=== PATIENT | male | born 1985 | race Caucasian/White ===

== ENCOUNTER 2017-03-27 01:53 | Inpatient (IN) | payer MEDICAID, OTHER ==
[~2017-03-27] VITALS: Ht 167.6 cm; Wt 72.2 kg
[2017-03-27 01:53] VITALS: BP 162/93; PULSE 108; RESP 13; RESP 18; TEMP 98.4; O2SAT 98
[2017-03-27] MEDS ORDERED: IOHEXOL 350 MG/ML 10 ML VIAL (for RAD DIAG) IV ONE ×2 (02:13→18:27)
[2017-03-27] MEDS ORDERED: ACETAMINOPHEN 325 MG TAB PO ONE (02:15)
[2017-03-27 02:30] LABS: AUTOMATED NEUTROPHIL # 11.7 TH/MM3 (1.8-7.7); BASOPHIL # 0.1 TH/MM3 (0-0.2); BASOPHIL % 0.4 % (0.0-2.0); EOSINOPHIL # 0.2 TH/MM3 (0-0.4); EOSINOPHIL % 1.3 % (0.0-4.0); HEMATOCRIT 43.7 % (39.0-51.0); HEMO FLAGS DIFF FINAL; LYMPH % 13.9 % (9.0-44.0); LYMPHOCYTE # 2.2 TH/MM3 (1.0-4.8); MEAN CELL VOLUME 86.5 FL (80.0-100.0); MEAN CORPUSCULAR HEMOGLOBIN 28.2 PG (27.0-34.0); MEAN CORPUSCULAR HGB CONC 32.6 % (32.0-36.0); MONO % 8.8 % (0.0-8.0); NEUT % 75.6 % (16.0-70.0); PLATELET COUNT 191 TH/MM3 (150-450); RED BLOOD COUNT 5.05 MIL/MM3 (4.50-5.90); WHITE BLOOD COUNT 15.5 TH/MM3 (4.0-11.0)
--- NOTE | 2017-03-27 02:38 | RADRPT ---
EXAM DATE/TIME: 03/27/2017 02:23 [facility] COMPARISON: No previous studies available for comparison. INDICATIONS : Fever. MEDICAL HISTORY : None. SURGICAL HISTORY : None. ENCOUNTER: Initial ACUITY: 1 day PAIN SCORE: 0/10 LOCATION: Bilateral chest FINDINGS: A single view of the chest demonstrates the lungs to be symmetrically aerated without evidence of mas s, infiltrate or effusion. The cardiomediastinal contours are unremarkable. Osseous structures are intact. CONCLUSION: Normal examination. Dedrick Harley Jr., MD on March 27, 2017 at 2:36 Board Certified Radiologist. This report was verified electronically.
[2017-03-27 02:49] LABS: BACTERIA, URINE RARE /hpf; BLOOD, URINE NEG (NEG); COMMENT (UR) CATH-CULTURE IND; CULTURE IF INDICATED CATH CULTURE IND; GLUCOSE,URINE NEG (NEG); HYALINE CAST, URINE 1 /lpf (RARE); KETONE, URINE 10 mg/dL (NEG); MUCUS URINE MOD /lpf (OCC); NITRITE,URINE NEG (NEG); SQUAMOUS EPITHELIAL CELL URINE <1 /hpf (0-5); URINE COLOR YELLOW (YELLW/STRAW)
[2017-03-27 03:06] LABS: ALT (GPT) 14 U/L (12-78); ANION GAP 6 MEQ/L (5-15); AST (GOT) 8 U/L (15-37); BICARBONATE 25.9 MEQ/L (21.0-32.0); BLOOD UREA NITROGEN 17 MG/DL (7-18); CHLORIDE 110 MEQ/L (98-107); GLOMERULAR FILTRATION RATE 69 ML/MIN (>89); POTASSIUM 3.7 MEQ/L (3.5-5.1); SODIUM (NA) 142 MEQ/L (136-145)
--- NOTE | 2017-03-27 03:08 | RADRPT ---
EXAM DATE/TIME: 03/27/2017 02:47 [facility] COMPARISON: No previous studies available for comparison. INDICATIONS : Syncopal episode, hit forehead. RADIATION DOSE: 41.51 CTDIvol (mGy) MEDICAL HISTORY : None SURGICAL HISTORY : None. ENCOUNTER: Initial ACUITY: 1 day PAIN SCALE: 0/10 LOCATION: cranial TECHNIQUE: Multiple contiguous axial images were obtained of the head. Using automated exposure control and adj ustment of the mA and/or kV according to patient size, radiation dose was kept as low as reasonably a chievable to obtain optimal diagnostic quality images. FINDINGS: CEREBRUM: The ventricles are normal for age. No evidence of midline shift, mass lesion, hemorrhage or acute in farction. No extra-axial fluid collections are seen. POSTERIOR FOSSA: The cerebellum and brainstem are intact. The 4th ventricle is midline. The cerebellopontine angle i s unremarkable. EXTRACRANIAL: The visualized portion of the orbits is intact. SKULL: The calvaria is intact. No evidence of skull fracture. CONCLUSION: Normal examination. Dedrick Harley Jr., MD on March 27, 2017 at 3:06 Board Certified Radiologist. This report was verified electronically.
--- NOTE | 2017-03-27 03:09 | PD ---
HPI Chief Complaint: Syncope/Near-Syncope Time Seen by Provider: 02:05 Travel History International Travel<30 days: No Contact w/Intl Traveler<30days: No Traveled to known affect area: No History of Present Illness HPI 32-year-old man who presents emergency department complaining of fever, swollen lymph nodes, neck pain, and possible seizure versus syncopal episode. He has no significant past medical history. He states the morning, 2 days ago, started having trouble swelling in the glands in the right side of his neck. This worsening straightening swelling of glands on both sides of his neck. He became more tender. He was seen in urgent care where he had lab work sent off. No therapeutic measures were taken at that point. He was feeling worse and was really in bed all day today. He's had chills. He had fever. States he got and began to feel faint. He said some of the table. He felt hot and flushed. His head on the table. Then woke up on the ground. He hasn't abrasion to his forehead, and was incontinent of urine. No witnessed seizure activity or convulsions. Denies pain in his neck, some stiffness but the pain is mostly in the front where he has marked adenopathy. He has sore throat and pain with swallowing. He thinks she's been eating and drinking okay. No sick contacts. No other complaints. History Past Medical History Medical History: Denies Significant Hx Tetanus Vaccination: Unknown Influenza Vaccination: No Social History Alcohol Use: Yes (OCCASIONALLY) Tobacco Use: No Allergies-Medications (Allergen,Severity, Reaction): Coded Allergies: No Known Allergies (Unverified , 03/27/17) Reported Meds & Prescriptions Reported Meds & Active Scripts Active No Active Prescriptions or Reported Medications Review of Systems Except as stated in HPI: all other systems reviewed are Neg Physical Exam Narrative GENERAL: Well-appearing 32-year-old man, no acute distress. SKIN: Focused skin assessment warm/dry. HEAD: Atraumatic. Normocephalic. EYES: Pupils equal and round. No scleral icterus. No injection or drainage. ENT: No nasal bleeding or discharge. Mucous membranes pink and moist. Tonsils are difficult to visualize but don't see any obvious tonsillar swelling, or pharyngeal exudates. NECK: Trachea midline. Large bilateral anterior cervical adenopathy, worse on the right. Some neck stiffness. CARDIOVASCULAR: Regular rate and rhythm. No murmur appreciated. RESPIRATORY: No accessory muscle use. Clear to auscultation. Breath sounds equal bilaterally. GASTROINTESTINAL: Abdomen soft, non-tender, nondistended. Hepatic and splenic margins not palpable. MUSCULOSKELETAL: No obvious deformities. No edema. NEUROLOGICAL: Awake and alert. No obvious cranial nerve deficits. Motor grossly within normal limits. Normal speech. PSYCHIATRIC: Appropriate mood and affect; insight and judgment normal. Data Data Last Documented VS Vital Signs Date Time Temp Pulse Resp B/P Pulse Ox O2 Delivery O2 Flow Rate FiO2 03/27/17 01:53 98 2 03/27/17 01:53 98.4 108 13 162/93 03/27/17 01:53 Room Air Orders Complete Blood Count With Diff (03/27/17 02:05) Comprehensive Metabolic Panel (03/27/17 02:05) Lactic Acid Sepsis Protocol (03/27/17 02:05) Magnesium (Mg) (03/27/17 02:05) Lipase (03/27/17 02:05) Troponin I (03/27/17 02:05) Urinalysis - C+S If Indicated (03/27/17 02:05) Bacterial Antigen Csf (03/27/17 02:05) Csf Cell Count + Differential (03/27/17 02:05) Glucose, Csf (03/27/17 02:05) Total Protein, Csf (03/27/17 02:05) Csf Culture And Gram Stain (03/27/17 02:05) Influenzae A/B Antigen (03/27/17 02:05) Blood Culture (03/27/17 02:05) Chest, Single Ap (03/27/17 02:05) Blood Glucose (03/27/17 02:05) Ecg Monitoring (03/27/17 02:05) Iv Access Insert/Monitor (03/27/17 02:05) Oximetry (03/27/17 02:05) Oxygen Administration (03/27/17 02:05) Acetaminophen (Tylenol) (03/27/17 02:15) Ct Brain W/O Iv Contrast(Rout) (03/27/17 ) Monoscreen (03/27/17 02:05) Group A Rapid Strep Screen (03/27/17 02:05) Iohexol 350 Inj (Omnipaque 350 Inj) (03/27/17 02:13) Strep Culture (Group A) (03/27/17 02:00) Urine Culture (03/27/17 02:35) Hsv Dna Pcr (03/27/17 04:50) Cat Scratch Fever Abs Igg,Igm (03/27/17 04:50) Vancomycin Inj (Vancomycin Inj) (03/27/17 05:00) Ceftriaxone Inj (Rocephin Inj) (03/27/17 05:00) Acyclovir Inj (Zovirax Inj) (03/27/17 05:00) Labs Laboratory Tests Test 03/27/17 03/27/17 03/27/17 02:15 02:35 03:45 White Blood Count 15.5 TH/MM3 Red Blood Count 5.05 MIL/MM3 Hemoglobin 14.2 GM/DL Hematocrit 43.7 % Mean Corpuscular Volume 86.5 FL Mean Corpuscular Hemoglobin 28.2 PG Mean Corpuscular Hemoglobin 32.6 % Concent Red Cell Distribution Width 14.0 % Platelet Count 191 TH/MM3 Mean Platelet Volume 8.8 FL Neutrophils (%) (Auto) 75.6 % Lymphocytes (%) (Auto) 13.9 % Monocytes (%) (Auto) 8.8 % Eosinophils (%) (Auto) 1.3 % Basophils (%) (Auto) 0.4 % Neutrophils # (Auto) 11.7 TH/MM3 Lymphocytes # (Auto) 2.2 TH/MM3 Monocytes # (Auto) 1.4 TH/MM3 Eosinophils # (Auto) 0.2 TH/MM3 Basophils # (Auto) 0.1 TH/MM3 CBC Comment DIFF FINAL Differential Comment Sodium Level 142 MEQ/L Potassium Level 3.7 MEQ/L Chloride Level 110 MEQ/L Carbon Dioxide Level 25.9 MEQ/L Anion Gap 6 MEQ/L Blood Urea Nitrogen 17 MG/DL Creatinine 1.22 MG/DL Estimat Glomerular Filtration 69 ML/MIN Rate Random Glucose 134 MG/DL Lactic Acid Level 1.1 mmol/L Calcium Level 8.3 MG/DL Magnesium Level 2.0 MG/DL Total Bilirubin 0.7 MG/DL Aspartate Amino Transf 8 U/L (AST/SGOT) Alanine Aminotransferase 14 U/L (ALT/SGPT) Alkaline Phosphatase 62 U/L Troponin I LESS THAN 0.02 NG/ML Total Protein 6.8 GM/DL Albumin 3.6 GM/DL Lipase 118 U/L Monoscreen NEG Urine Color YELLOW Urine Turbidity CLEAR Urine pH 6.0 Urine Specific [place] 1.019 Urine Protein NEG mg/dL Urine Glucose (UA) NEG mg/dL Urine Ketones 10 mg/dL Urine Occult Blood NEG Urine Nitrite NEG Urine Bilirubin NEG Urine Urobilinogen LESS THAN 2.0 MG/DL Urine Leukocyte Esterase NEG Urine RBC LESS THAN 1 /hpf Urine WBC 2 /hpf Urine Squamous Epithelial <1 /hpf Cells Urine Bacteria RARE /hpf Urine Hyaline Casts 1 /lpf Urine Mucus MOD /lpf Microscopic Urinalysis Comment CATH-CULTURE IND CSF Volume (Tube 1) 1.2 ML CSF Supernatant Color (tube 1) CLEAR CSF Gross Blood (Tube 1) 0 CSF Volume (Tube 2) 1.1 ML CSF Supernatant Color (tube 2) CLEAR CSF Gross Blood (Tube 2) 0 CSF Volume (Tube 3) 2.2 ML CSF Supernatant Color (tube 3) CLEAR CSF Gross Blood (Tube 3) 0 CSF Volume (Tube 4) 1.7 ML CSF Supernatant Color (tube 4) CLEAR CSF Gross Blood (Tube 4) 0 CSF WBC (Tube 4) 25 /MM3 CSF RBC (Tube 4) 0 /MM3 CSF Neutrophils 0 % CSF Lymphocytes 67 % CSF Monocytes 18 % CSF Histiocytes 15 % CSF Glucose 57 MG/DL CSF Total Protein 63.4 MG/DL [facility] Medical Decision Making Medical Screen Exam Complete: Yes Emergency Medical Condition: Yes Interpretation(s) LABS: CBC remarkable for mild leukocytosis. CMP is unremarkable. Troponins negative. Lipase is normal. Lactate is 1.1. UA is unremarkable. Monospot is negative Rapid strep is negative. Head CT: Negative. Chest x-ray: Negative. Differential Diagnosis Lymphadenitis, meningitis, strep, mono, acute retroviral syndrome, other Narrative Course Medical decision making 32-year-old man presents emergent department with concern for fever, anterior cervical lymphadenitis, syncope versus seizure, and feeling poorly. No clear URI symptoms. No HIV risk factors, no IVDU, sexually active one female partner only. Monospot is negative. Rapid strep is negative. He has a lot of neck pain but he has his bulky adenopathy. I think primarily accounts for it. However given the concern for seizure, fever, neck pain, we'll check lumbar puncture. Suspect it'll be normal and we'll treat him for lymphadenitis. FINAL: CSF results show pleocytosis. Etiology is not clear. May have disseminated Cat Scratch disease. He looks overall well. We will empirically cover him for meningoencephalitis. We will add acyclovir. We'll plan on admission for further evaluation. Procedures Procedure Narrative Lumbar puncture: Form consent was obtained. Patient was initially attempted in the seated position. There is prepped with Betadine. 20-gauge needle was attempted and the L4-L5 interspace. We're unsuccessful. Patient was then changed to his left lateral decubitus position. New kit was used. Second attempt was successful. Clear spinal fluid was obtained. Patient tolerated well. Diagnosis Primary Impression: Encephalitis Additional Impression: Cat-scratch disease Admitting Information Admitting Physician Requests: Admit Scripts No Active Prescriptions or Reported Meds Parmjit Colon MD March 27, 2017 03:09
[2017-03-27 03:21] LABS: ALKALINE PHOSPHATASE 62 U/L (45-117); TOTAL BILIRUBIN ADULT 0.7 MG/DL (0.2-1.0)
[2017-03-27 04:36] LABS: GROSS BLOOD TUBE #1 0 (0); GROSS BLOOD TUBE #2 0 (0); GROSS BLOOD TUBE #3 0 (0); GROSS BLOOD TUBE #4 0 (0); SUPERNATE COLOR TUBE #1 CLEAR (CLEAR); SUPERNATE COLOR TUBE #2 CLEAR (CLEAR); SUPERNATE COLOR TUBE #3 CLEAR (CLEAR); SUPERNATE COLOR TUBE #4 CLEAR (CLEAR); VOLUME TUBE # 1 1.2 ML; VOLUME TUBE # 2 1.1 ML; VOLUME TUBE # 3 2.2 ML; VOLUME TUBE # 4 1.7 ML; WBC TUBE #4 25 /MM3 (0-10)
[2017-03-27] MEDS ORDERED: cefTRIAXone INJ 2,000 MG in SODIUM CHLORIDE 0.9% INJ 100 ML IV ONE (05:00)
[2017-03-27] MEDS ORDERED: ACYCLOVIR IV ONE (05:00)
[2017-03-27] MEDS ORDERED: VANCOMYCIN INJ 1,000 MG in SODIUM CHLOR 0.9% 250 ML INJ 250 ML IV ONE (05:00)
[2017-03-27] MEDS ORDERED: SODIUM CHLORIDE 0.9% IV ONE (05:00)
[2017-03-27 05:03] LABS: CSF LYMPHOCYTES 67 %; CSF MONOCYTES 18 %; CSF NEUTROPHILS 0 %
[2017-03-27] MEDS ORDERED: NALOXONE HCL 0.4 MG/ML AMP IV PRN (05:30)
[2017-03-27] MEDS ORDERED: ACETAMINOPHEN 325 MG TAB PO PRN (05:30)
[2017-03-27] MEDS ORDERED: ONDANSETRON HCL 4 MG/2 ML VIAL IVP PRN (05:30)
[2017-03-27] MEDS ORDERED: SODIUM CHLORIDE 0.9% FLUSH 10 ML FLUSH IV FLUSH PRN (05:30)
[2017-03-27] MEDS ORDERED: Vancomycin Consult Pharmacy 1 EA OTHER SCH (05:45)
[2017-03-27 07:24] VITALS: BP 132/75; PULSE 83; RESP 18; O2SAT 99
[2017-03-27] MEDS: SODIUM CHLORIDE 0.9% FLUSH 10 ML FLUSH IV FLUSH SCH ×2 (09:15→20:55)
[2017-03-27 09:20] VITALS: BP 143/84; PULSE 99; RESP 20; TEMP 97.7; O2SAT 99
--- NOTE | 2017-03-27 10:17 | HHI.HP ---
[facility] Service [place] [facility] Primary Care Physician No Primary Care Physician Admission Diagnosis encephalitis, cat scratch disease Diagnoses: (1) Encephalitis Diagnosis: Principal Chief Complaint: ' I wasn't feeling well'. Travel History International Travel<30 Days: No Contact w/Intl Traveler <30 Da: No Traveled to Known Affected Are: No History of Present Illness patient is a 32 y/o male with no significant past medical history who presented to ER after he passed out last night. he says that he had a painful enlarged cervical lymph node two days ago. this started to get worse. he denies any fever at the time although had some chills. he says that last night when he went to take some motrin he felt diaphoretic and then passed out. he denies any chest pain or so prior to the incident. there's no report of any seizures. he denies any sick contact or recent trips.he denies any headache although he says that he had some pain on moving his neck last night. Review of Systems Constitutional: COMPLAINS OF: Diaphoretic episodes, Chills, DENIES: Fever, Weight loss, Night Sweats Eyes: DENIES: Blurred vision, Diplopia, Vision loss, Double Vision Ears, nose, mouth, throat: DENIES: Tinnitus, Vertigo, Throat pain, Epistaxis Respiratory: DENIES: Apneas, Cough, Snoring, Wheezing, Hemoptysis, Sputum production, Shortness of breath Cardiovascular: DENIES: Chest pain, Palpitations, Syncope, Dyspnea on Exertion , PND, Lower Extremity Edema, Orthopnea, Claudication Gastrointestinal: DENIES: Abdominal pain, Black stools, Bloody stools, Constipation, Diarrhea, Nausea, Vomiting, Difficulty Swallowing, Anorexia Genitourinary: DENIES: Urinary frequency, Urgency, Hematuria, Dysuria Musculoskeletal: COMPLAINS OF: Neck pain, DENIES: Joint pain, Muscle aches, Stiffness, Joint Swelling Integumentary: DENIES: Rash Neurologic: DENIES: Abnormal gait, Headache, Localized weakness, Paresthesias, Seizures, Speech Problems, Tremor, Poor Balance Psychiatric: DENIES: Anxiety, Confusion, Mood changes, Depression, Hallucinations, Agitation, Suicidal Ideation, Homicidal Ideation, Delusions Past Family Social History Past Medical History not significant. Past Surgical History era surgery at childhood. Reported Medications none Allergies: Coded Allergies: No Known Allergies (Unverified , 03/27/17) Active Ordered Medications Current Medications Acetaminophen (Tylenol) 650 mg ONCE ONCE PO Last administered on 03/27/17 02: 40; Start 03/27/17 at 02:15; Stop 03/27/17 at 02:16; Status DC Iohexol 80 ml 80 ml STK-MED ONCE IV Last administered on 03/27/17 02:13; Start 03/27/17 at 02:13; Stop 03/27/17 at 02:18; Status DC Vancomycin HCl 1000 mg/Sodium Chloride 250 ml @ 250 mls/hr ONCE ONCE IV Last administered on 03/27/17 07:24; Start 03/27/17 at 05:00; Stop 03/27/17 at 05:59; Status DC Ceftriaxone Sodium 2000 mg/ Sodium Chloride 100 ml @ 200 mls/hr ONCE ONCE IV Last administered on 03/27/17 05:21; Start 03/27/17 at 05:00; Stop 03/27/17 at 05: 29; Status DC Acyclovir Sodium/ Sodium Chloride (Zovirax Inj/NS Inj) 150 ml @ 150 mls/hr ONCE ONCE IV Last administered on 03/27/17 09:15; Start 03/27/17 at 05:00; Stop 03/27/17 at 05:59; Status DC Sodium Chloride (NS Flush) 2 ml UNSCH PRN IV FLUSH FLUSH AFTER USING IV ACCESS ; Start 03/27/17 at 05:30 Sodium Chloride (NS Flush) 2 ml BID IV FLUSH Last administered on 03/27/17 09: 15; Start 03/27/17 at 09:00 Acetaminophen (Tylenol) 650 mg Q4H PRN PO TEMP > 100.4; Start 03/27/17 at 05:30 Ondansetron HCl (Zofran Inj) 4 mg Q6H PRN IVP NAUSEA OR VOMITING; Start at 05:30 Naloxone HCl 0.4 mg 0.4 mg UNSCH PRN IV SEE LABEL COMMENTS; Start 03/27/17 at 05 :30 Acyclovir Sodium 780 mg/Sodium Chloride 150 ml @ 150 mls/hr Q8H IV ; Start 03/27 at 14:00 Ceftriaxone Sodium 2000 mg/ Sodium Chloride 100 ml @ 200 mls/hr Q12H IV ; Start 03/27/17 at 17:00 Vancomycin HCl 1250 mg/Sodium Chloride 262.5 ml @ 262.5 mls/ hr Q12H IV ; Start 03/27/17 at 15:00 Pharmacy Profile Note (Vancomycin Consult Pharmacy) 0 ml @ 0 mls/hr UNSCH OTHER ; Start 03/27/17 at 05:45 Miscellaneous Information SPECIFIC LAB TO BE [facility]... ONCE ONCE .XX ; Start 03/28 at 14:45; Stop 03/28/17 at 14:46 Family History not relevant to this admission. Social History doesn't smoke.drinks occasionally. Physical Exam Vital Signs Vital Signs Date Time Temp Pulse Resp B/P Pulse Ox O2 Delivery O2 Flow Rate FiO2 03/27/17 09:20 97.7 99 20 143/84 99 03/27/17 07:24 83 18 132/75 99 03/27/17 01:53 98 2 03/27/17 01:53 98.4 108 13 162/93 98 03/27/17 01:53 108 13 98 Room Air 03/27/17 01:53 18 98 Nasal Cannula Physical Exam GENERAL: This is a well-nourished, well-developed patient, in no apparent distress. SKIN: No rashes, ecchymoses or lesions. Cool and dry. HEAD: Atraumatic. Normocephalic. No temporal or scalp tenderness. EYES: Pupils equal round and reactive. Extraocular motions intact. No scleral icterus. No injection or drainage. ENT: Nose without bleeding, purulent drainage or septal hematoma. Throat without erythema, tonsillar hypertrophy or exudate. Uvula midline. Airway patent. NECK: Trachea midline. No JVD or lymphadenopathy. Supple, nontender, no meningeal signs. CARDIOVASCULAR: Regular rate and rhythm without murmurs, gallops, or rubs. RESPIRATORY: Clear to auscultation. Breath sounds equal bilaterally. No wheezes , rales, or rhonchi. GASTROINTESTINAL: Abdomen soft, non-tender, nondistended. No hepato-splenomegaly , or palpable masses. No guarding. MUSCULOSKELETAL: Extremities without clubbing, cyanosis, or edema. No joint tenderness, effusion, or edema noted. No calf tenderness. Negative Homans sign bilaterally. NEUROLOGICAL: Awake and alert. Cranial nerves II through XII intact. Motor and sensory grossly within normal limits. Five out of 5 muscle strength in all muscle groups. Normal speech. Laboratory Laboratory Tests Test 03/27/17 03/27/17 03/27/17 02:15 02:35 03:45 White Blood Count 15.5 Red Blood Count 5.05 Hemoglobin 14.2 Hematocrit 43.7 Mean Corpuscular Volume 86.5 Mean Corpuscular Hemoglobin 28.2 Mean Corpuscular Hemoglobin 32.6 Concent Red Cell Distribution Width 14.0 Platelet Count 191 Mean Platelet Volume 8.8 Neutrophils (%) (Auto) 75.6 Lymphocytes (%) (Auto) 13.9 Monocytes (%) (Auto) 8.8 Eosinophils (%) (Auto) 1.3 Basophils (%) (Auto) 0.4 Neutrophils # (Auto) 11.7 Lymphocytes # (Auto) 2.2 Monocytes # (Auto) 1.4 Eosinophils # (Auto) 0.2 Basophils # (Auto) 0.1 CBC Comment DIFF FINAL Differential Comment Sodium Level 142 Potassium Level 3.7 Chloride Level 110 Carbon Dioxide Level 25.9 Anion Gap 6 Blood Urea Nitrogen 17 Creatinine 1.22 Estimat Glomerular Filtration 69 Rate Random Glucose 134 Lactic Acid Level 1.1 Calcium Level 8.3 Magnesium Level 2.0 Total Bilirubin 0.7 Aspartate Amino Transf 8 (AST/SGOT) Alanine Aminotransferase 14 (ALT/SGPT) Alkaline Phosphatase 62 Troponin I LESS THAN 0.02 Total Protein 6.8 Albumin 3.6 Lipase 118 Monoscreen NEG Urine Color YELLOW Urine Turbidity CLEAR Urine pH 6.0 Urine Specific [place] 1.019 Urine Protein NEG Urine Glucose (UA) NEG Urine Ketones 10 Urine Occult Blood NEG Urine Nitrite NEG Urine Bilirubin NEG Urine Urobilinogen LESS THAN 2.0 Urine Leukocyte Esterase NEG Urine RBC LESS THAN 1 Urine WBC 2 Urine Squamous Epithelial <1 Cells Urine Bacteria RARE Urine Hyaline Casts 1 Urine Mucus MOD Microscopic Urinalysis Comment CATH-CULTURE IND CSF Volume (Tube 1) 1.2 CSF Supernatant Color (tube 1) CLEAR CSF Gross Blood (Tube 1) 0 CSF Volume (Tube 2) 1.1 CSF Supernatant Color (tube 2) CLEAR CSF Gross Blood (Tube 2) 0 CSF Volume (Tube 3) 2.2 CSF Supernatant Color (tube 3) CLEAR CSF Gross Blood (Tube 3) 0 CSF Volume (Tube 4) 1.7 CSF Supernatant Color (tube 4) CLEAR CSF Gross Blood (Tube 4) 0 CSF WBC (Tube 4) 25 CSF RBC (Tube 4) 0 CSF Neutrophils 0 CSF Lymphocytes 67 CSF Monocytes 18 CSF Histiocytes 15 CSF Glucose 57 CSF Total Protein 63.4 Date/Time Procedure Status Source Growth 03/27/17 03:45 Gram Stain - Final Resulted Cerebral Spinal Fluid Lumbar Puncture 03/27/17 03:45 CSF Culture Resulted Cerebral Spinal Fluid Lumbar Puncture Pending 03/27/17 02:35 Urine Culture Received Urine Catheterized Urine Pending 03/27/17 02:35 Influenza Types A,B Antigen (YENI) - Final Complete Nasal Washing NEGATIVE FOR FLU A AND B ANTIGEN.... 03/27/17 02:05 Aerobic Blood Culture Received Blood Peripheral Pending 03/27/17 02:05 Anaerobic Blood Culture Received Blood Peripheral Pending 03/27/17 02:00 Group A Streptococcus Screen (YENI) - Final Complete Throat 03/27/17 02:00 Group A Streptococcus Screen Received Throat Pending Result Diagram: 03/27/17 0215 03/27/17 0215 Imaging Last Impressions Chest X-Ray 03/27/17 0205 Signed Impressions: Service Date/Time: Monday, March 27, 2017 02:23 - CONCLUSION: Normal examination. Dedrick Harley Jr., MD Head CT 03/27/17 0000 Signed Impressions: Service Date/Time: Monday, March 27, 2017 02:47 - CONCLUSION: Normal examination. Dedrick Harley Jr., MD EKG; sinus tachycardia Assessment and Plan Assessment and Plan A/P - syncope with abnormal CSF pleocytosis started on broad spectrum IV antibiotics- ID consulted- will consult neurology. will follow the cultures. Discussed Condition With the patient. Physician Certification 2 Midnight Certification Type: Admission for Inpatient Services Order for Inpatient Services The services are ordered in accordance with Medicare regulations or non- Medicare payer requirements, as applicable. In the case of services not specified as inpatient-only, they are appropriately provided as inpatient services in accordance with the 2-midnight benchmark. Estimated LOS (days): 2 days is the estimated time the patient will need to remain in the hospital, assuming treatment plan goals are met and no additional complications. Post-Hospital Plan: Home Godfrey Mccarty MD March 27, 2017 10:16
[2017-03-27 12:00] VITALS: BP 128/79; PULSE 78; RESP 20; TEMP 97.9; O2SAT 98
[2017-03-27] MEDS: SODIUM CHLORIDE 0.9% IV SCH ×2 (12:34→21:00)
[2017-03-27] MEDS: ACYCLOVIR IV SCH ×2 (12:34→21:00)
[2017-03-27] MEDS: VANCOMYCIN INJ 1,250 MG in SODIUM CHLOR 0.9% 250 ML INJ 250 ML IV SCH (14:07)
--- NOTE | 2017-03-27 15:27 | EKG ---
Date Performed: 03/27/2017 Time Performed: 01:58:30 PTAGE: 32 years EKG: SINUS TACHYCARDIA POSSIBLE LEFT ATRIAL ENLARGEMENT INCOMPLETE RIGHT BUNDLE BRANCH BLOCK NON SPECIFIC T-WAVE ABNORMALITY ABNORMAL RHYTHM ECG NO PREVIOUS TRACING DOCTOR: [place] Roman Interpretating Date/Time 03/27/2017 15:24:06
[2017-03-27 16:00] VITALS: BP 132/77; PULSE 90; RESP 20; TEMP 100; O2SAT 99
--- NOTE | 2017-03-27 17:04 | PD.ID.CON ---
History of Present Illness Service ID Consult Requested By . Reason for Consult Evaluation and Mment of possible meningitis, cat scratch disease Primary Care Physician No Primary Care Physician Diagnoses: History of Present Illness is a 32 y/o CM with no significant past medical history who presented to ER after he passed out last night. He says that he had a painful enlarged cervical lymph node two days ago and this started to get worse. He denies any fever at the time although had some chills. he says that last night when he went to take some motrin he felt diaphoretic and then passed out. he denies any chest pain or so prior to the incident. there's no report of any seizures. he denies any sick contact or recent trips.he denies any headache although he says that he had some pain on moving his neck last night. No fever, chills, night sweats. No rash No diarrhea No joint pains or rheum like symptoms prior to admission. ID consulted for evaluation and Mment of possible meningitis. Review of Systems Constitutional: DENIES: Diaphoretic episodes, Fatigue, Fever, Weight gain, Weight loss, Chills, Dizziness, Change in appetite, Night Sweats Endocrine: DENIES: Heat/cold intolerance, Polydipsia, Polyuria, Polyphagia Eyes: DENIES: Blurred vision, Diplopia, Eye inflammation, Eye pain, Vision loss , Photosensitivity, Double Vision Ears, nose, mouth, throat: DENIES: Tinnitus, Hearing loss, Vertigo, Nasal discharge, Oral lesions, Throat pain, Hoarseness, Ear Pain, Running Nose, Epistaxis, Sinus Pain, Toothache, Odynophagia Respiratory: DENIES: Apneas, Cough, Snoring, Wheezing, Hemoptysis, Sputum production, Shortness of breath Cardiovascular: DENIES: Chest pain, Palpitations, Syncope, Dyspnea on Exertion , PND, Lower Extremity Edema, Orthopnea, Claudication Gastrointestinal: DENIES: Abdominal pain, Black stools, Bloody stools, Constipation, Diarrhea, Nausea, Vomiting, Difficulty Swallowing, Anorexia Genitourinary: DENIES: Sexual dysfunction, Urinary frequency, Urinary incontinence, Urgency, Hematuria, Dysuria, Nocturia, Penile Discharge, Testicular Pain, Testicular Swelling Musculoskeletal: COMPLAINS OF: Neck pain Integumentary: COMPLAINS OF: Abnormal pigmentation, DENIES: Nail changes, Pruritus, Rash Hematologic/lymphatic: DENIES: Bruising, Lymphadenopathy Immunologic/allergic: DENIES: Eczema, Urticaria Neurologic: DENIES: Abnormal gait, Headache, Localized weakness, Paresthesias, Seizures, Speech Problems, Tremor, Poor Balance Psychiatric: DENIES: Anxiety, Confusion, Mood changes, Depression, Hallucinations, Agitation, Suicidal Ideation, Homicidal Ideation, Delusions Except as stated in HPI: all other systems reviewed are Neg Past Family Social History Allergies: Coded Allergies: No Known Allergies (Unverified , 03/27/17) Past Medical History Ear surgery as child. Past Surgical History None Reported Medications Reported Meds & Active Scripts Active No Active Prescriptions or Reported Medications Active Ordered Medications Current Medications Medications (Trade) Dose Ordered Sig/Emi Route Start Time Stop Time Status Last Admin (NS Flush) 2 ml UNSCH PRN IV FLUSH 03/27/17 05:30 (NS Flush) 2 ml BID IV FLUSH 03/27/17 09:00 03/27/17 20:55 (Tylenol) 650 mg Q4H PRN PO 03/27/17 05:30 03/27/17 22:05 (Zofran Inj) 4 mg Q6H PRN IVP 03/27/17 05:30 Naloxone HCl 0.4 mg 0.4 mg UNSCH PRN IV 03/27/17 05:30 Acyclovir Sodium 780 mg/Sodium Chloride 150 ml @ 150 mls/hr Q8H IV 03/27/17 14:00 03/27/17 21:00 Ceftriaxone Sodium 2000 mg/ Sodium Chloride 100 ml @ 200 mls/hr Q12H IV 03/27/17 17:00 03/27/17 18:27 Vancomycin HCl 1250 mg/Sodium Chloride 262.5 ml @ 262.5 mls/ hr Q12H IV 03/27/17 15:00 03/27/17 14:07 (Vancomycin Consult Pharmacy) 0 ml @ 0 mls/hr UNSCH OTHER 03/27/17 05:45 Miscellaneous Information SPECIFIC LAB TO BE ... ONCE ONCE .XX 03/28/17 14:45 03/28/17 14:46 Family History reviewed and NC to current ID problem. Social History Denies alcohol, smoking or drugs. Not with girl friend any more. Last with her 1 week back. Employer: ? [employer] Physical Exam Vital Signs Vital Signs Date Time Temp Pulse Resp B/P Pulse Ox O2 Delivery O2 Flow Rate FiO2 03/27/17 12:00 97.9 78 20 128/79 98 03/27/17 09:20 97.7 99 20 143/84 99 03/27/17 07:24 83 18 132/75 99 03/27/17 01:53 98 2 03/27/17 01:53 98.4 108 13 162/93 98 03/27/17 01:53 108 13 98 Room Air 03/27/17 01:53 18 98 Nasal Cannula Physical Exam GENERAL: This is a well-nourished, well-developed patient, in no apparent distress. SKIN: No rashes, ecchymoses or lesions. Cool and dry. HEAD: Atraumatic. Normocephalic. No temporal or scalp tenderness. EYES: Pupils equal round and reactive. Extraocular motions intact. No scleral icterus. No injection or drainage. ENT: Nose without bleeding, purulent drainage or septal hematoma. Throat without erythema, tonsillar hypertrophy or exudate. Uvula midline. Airway patent. NECK: Trachea midline. Right neck with significant swelling, erythema, warmth, tenderness. Bimanual exam of oral cavity performed with no ballotment noted. Left submandibular tenderness and swelling noted. CARDIOVASCULAR: Regular rate and rhythm without murmurs, gallops, or rubs. RESPIRATORY: Clear to auscultation. Breath sounds equal bilaterally. No wheezes , rales, or rhonchi. GASTROINTESTINAL: Abdomen soft, non-tender, nondistended. MUSCULOSKELETAL: Extremities without clubbing, cyanosis, or edema. No joint tenderness, effusion, or edema noted. No calf tenderness. Negative Homans sign bilaterally. NEUROLOGICAL: Awake and alert. Grossly non focal Psych: cooperative IV line sites with no e/o infection Laboratory Laboratory Tests Test 03/27/17 03/27/17 03/27/17 02:15 02:35 03:45 White Blood Count 15.5 Red Blood Count 5.05 Hemoglobin 14.2 Hematocrit 43.7 Mean Corpuscular Volume 86.5 Mean Corpuscular Hemoglobin 28.2 Mean Corpuscular Hemoglobin 32.6 Concent Red Cell Distribution Width 14.0 Platelet Count 191 Mean Platelet Volume 8.8 Neutrophils (%) (Auto) 75.6 Lymphocytes (%) (Auto) 13.9 Monocytes (%) (Auto) 8.8 Eosinophils (%) (Auto) 1.3 Basophils (%) (Auto) 0.4 Neutrophils # (Auto) 11.7 Lymphocytes # (Auto) 2.2 Monocytes # (Auto) 1.4 Eosinophils # (Auto) 0.2 Basophils # (Auto) 0.1 CBC Comment DIFF FINAL Differential Comment Sodium Level 142 Potassium Level 3.7 Chloride Level 110 Carbon Dioxide Level 25.9 Anion Gap 6 Blood Urea Nitrogen 17 Creatinine 1.22 Estimat Glomerular Filtration 69 Rate Random Glucose 134 Lactic Acid Level 1.1 Calcium Level 8.3 Magnesium Level 2.0 Total Bilirubin 0.7 Aspartate Amino Transf 8 (AST/SGOT) Alanine Aminotransferase 14 (ALT/SGPT) Alkaline Phosphatase 62 Troponin I LESS THAN 0.02 Total Protein 6.8 Albumin 3.6 Lipase 118 Monoscreen NEG Urine Color YELLOW Urine Turbidity CLEAR Urine pH 6.0 Urine Specific Moore 1.019 Urine Protein NEG Urine Glucose (UA) NEG Urine Ketones 10 Urine Occult Blood NEG Urine Nitrite NEG Urine Bilirubin NEG Urine Urobilinogen LESS THAN 2.0 Urine Leukocyte Esterase NEG Urine RBC LESS THAN 1 Urine WBC 2 Urine Squamous Epithelial <1 Cells Urine Bacteria RARE Urine Hyaline Casts 1 Urine Mucus MOD Microscopic Urinalysis Comment CATH-CULTURE IND CSF Volume (Tube 1) 1.2 CSF Supernatant Color (tube 1) CLEAR CSF Gross Blood (Tube 1) 0 CSF Volume (Tube 2) 1.1 CSF Supernatant Color (tube 2) CLEAR CSF Gross Blood (Tube 2) 0 CSF Volume (Tube 3) 2.2 CSF Supernatant Color (tube 3) CLEAR CSF Gross Blood (Tube 3) 0 CSF Volume (Tube 4) 1.7 CSF Supernatant Color (tube 4) CLEAR CSF Gross Blood (Tube 4) 0 CSF WBC (Tube 4) 25 CSF RBC (Tube 4) 0 CSF Neutrophils 0 CSF Lymphocytes 67 CSF Monocytes 18 CSF Histiocytes 15 CSF Glucose 57 CSF Total Protein 63.4 Date/Time Procedure Status Source Growth 03/27/17 03:45 Gram Stain - Final Resulted Cerebral Spinal Fluid Lumbar Puncture 03/27/17 03:45 CSF Culture Resulted Cerebral Spinal Fluid Lumbar Puncture Pending 03/27/17 02:35 Urine Culture Received Urine Catheterized Urine Pending 03/27/17 02:35 Influenza Types A,B Antigen (YENI) - Final Complete Nasal Washing NEGATIVE FOR FLU A AND B ANTIGEN.... 03/27/17 02:05 Aerobic Blood Culture Received Blood Peripheral Pending 03/27/17 02:05 Anaerobic Blood Culture Received Blood Peripheral Pending 03/27/17 02:00 Group A Streptococcus Screen (YENI) - Final Complete Throat 03/27/17 02:00 Group A Streptococcus Screen Received Throat Pending Result Diagram: 03/27/17 02103/27/17 021 Imaging Last Impressions Chest X-Ray 03/27/17 0205 Signed Impressions: Service Date/Time: Monday, March 27, 2017 02:23 - CONCLUSION: Normal examination. Dedrick Harley Jr., MD Neck CT 03/27/17 0000 Signed Impressions: Service Date/Time: Monday, March 27, 2017 18:12 - CONCLUSION: No evidence of abscess Chuy Ruelas MD Maxillofacial CT 03/27/17 0000 Signed Impressions: Service Date/Time: Monday, March 27, 2017 18:03 - CONCLUSION: Normal examination. Chuy Ruelas MD Head CT 03/27/17 0000 Signed Impressions: Service Date/Time: Monday, March 27, 2017 02:47 - CONCLUSION: Normal examination. Dedrick Harley Jr., MD Assessment and Plan Assessment and Plan Possible meningoencephalitis vs parameningeal focus of infection related to neck swelling. Right side neck swelling ? origin submandibular gland vs LNs vs cellulitis of Skin soft tissue. Syncope prior to admission Abnormal LP Leucocytosis Elevated CRP. Recs: [facility] test negative but will send EBV serologies. Possible acute retroviral syndrome r/o HIV. Check Antibody screen, CD4 and Viral load. Hepatitis profile RPR GC and Chlamydia Follow bartonella serology Check CPR. CT facial bones CT soft tissue neck ENT consult (acute neck swelling) Continue Vanco IV Continue Ceftriaxone IV meningitis dose for now. Continue Acyclovir IV pt reports cold sore prior to this episode. Appreciate Neurology consult: follow 2D ECHO and MRI. Catherine Garcia MD March 27, 2017 17:04
[2017-03-27] MEDS: cefTRIAXone INJ 2,000 MG in SODIUM CHLORIDE 0.9% INJ 100 ML IV SCH (18:27)
--- NOTE | 2017-03-27 19:05 | RADRPT ---
EXAM DATE/TIME: 03/27/2017 18:03 [facility] COMPARISON: No previous studies available for comparison. INDICATIONS : Submandibular abscess. IV CONTRAST: 80 cc Omnipaque 350 (iohexol) IV RADIATION DOSE: 36.78 CTDIvol (mGy) MEDICAL HISTORY : None SURGICAL HISTORY : None. ENCOUNTER: Initial ACUITY: 3 days PAIN SCALE: 1/10 LOCATION: Right submandibular region. TECHNIQUE: Volumetric scanning of the facial bones was performed. Using automated exposure control and adjustme nt of the mA and/or kV according to patient size, radiation dose was kept as low as reasonably achiev able to obtain optimal diagnostic quality images. FINDINGS: ORBITS: The orbital and infraorbital osseous structures are intact. The retroconal structures have a normal configuration. No radiopaque foreign bodies are seen. NASAL BONE: The nasal bone and maxillary spine are intact ZYGOMATIC ARCHES: Symmetric without evidence of fracture. SINUSES: The maxillary, ethmoid and frontal sinuses are intact. No air-fluid levels seen. NASAL CAVITY: The nasal septum is intact and midline. The lacrimal ducts are intact. SOFT TISSUES: See report above soft tissue CT neck performed same date. No radiopaque foreign bodies seen. No soft -tissue swelling is seen. INTRACRANIAL: No intracranial air seen. CRIBIFORM PLATE: Grossly intact. CONCLUSION: Normal examination. Chuy Ruelas MD on March 27, 2017 at 18:58 Board Certified Radiologist. This report was verified electronically.
--- NOTE | 2017-03-27 19:08 | RADRPT ---
EXAM DATE/TIME: 03/27/2017 18:12 [facility] COMPARISON: No previous studies available for comparison. INDICATIONS : Submandibular abscess IV CONTRAST: 80 cc Omnipaque 350 (iohexol) IV RADIATION DOSE: 14.15 CTDIvol (mGy) MEDICAL HISTORY : None SURGICAL HISTORY : None. ENCOUNTER: Initial ACUITY: 3 days PAIN SCALE: 1/10 LOCATION: Right Submandibular Region. TECHNIQUE: Volumetric scanning of the neck was performed. Using automated exposure control and adjustment of th e mA and/or kV according to patient size, radiation dose was kept as low as reasonably achievable to obtain optimal diagnostic quality images. FINDINGS: There appear to be edematous changes in the deep subcutaneous tissues of the low neck and cervicothor acic junction region anteriorly, nonspecific NASOPHARYNX: The nasopharyngeal airway has a normal configuration. No mucosal thickening or mass is seen. OROPHARYNX: The intrinsic muscles of the tongue are symmetric. The tonsillar pillars are intact. The prevertebr al soft tissues are not thickened. LARYNX: The supraglottic, glottic, and infraglottic structures are intact. PARAPHARYNGEAL: The parapharyngeal space is intact. SALIVARY GLANDS: The parotids are diffusely heterogeneous in symmetric fashion bilaterally. The submandibular salivary glands are fairly homogeneous in density and mildly prominent bilaterally. LYMPH NODES: Normal size upper jugular chain cervical lymph nodes bilaterally. Smaller nodes in the lower neck THYROID: Homogeneous enhancement without evidence of nodule. BONES: Unremarkable. CONCLUSION: No evidence of abscess Chuy Ruelas MD on March 27, 2017 at 19:03 Board Certified Radiologist. This report was verified electronically.
--- NOTE | 2017-03-27 19:09 | PD.CONS ---
History of Present Illness Service Neurology Consult Requested By medical Reason for Consult syncope Primary Care Physician No Primary Care Physician History of Present Illness 32 y/o male with no significant past medical history who presented to ER after he passed out last night. he says that he had a painful enlarged cervical lymph node two days ago. this started to get worse. went to urgent care yesterday for fever, neck swelling and not feeling well. he says that last night when he went to take some motrin he felt diaphoretic, needed to go to the bathroom and then passed out. had some incontinence. no confusion, no jerking. no hx of any seizures. he denies any sick contact or recent trips.he denies any headache although he says that he had some pain on moving his neck last night. ct brain naicp. csf with mild elevation in protein and wbc count. cx's pending. Review of Systems as above and admit hp Past Family Social History Past Medical History not significant. Past Surgical History surgery at childhood. Reported Medications none Allergies: Coded Allergies: No Known Allergies (Unverified , 03/27/17) Family History n/c Social History doesn't smoke.drinks occasionally. Review of Systems All other ROS: ROS reviewed as documented in chart Past Family Social History Allergies: Coded Allergies: No Known Allergies (Unverified , 03/27/17) Active Ordered Medications Current Medications Medications (Trade) Dose Ordered Sig/Emi Route Start Time Stop Time Status Last Admin (NS Flush) 2 ml UNSCH PRN IV FLUSH 03/27/17 05:30 (NS Flush) 2 ml BID IV FLUSH 03/27/17 09:00 03/27/17 09:15 (Tylenol) 650 mg Q4H PRN PO 03/27/17 05:30 (Zofran Inj) 4 mg Q6H PRN IVP 03/27/17 05:30 Naloxone HCl 0.4 mg 0.4 mg UNSCH PRN IV 03/27/17 05:30 Acyclovir Sodium 780 mg/Sodium Chloride 150 ml @ 150 mls/hr Q8H IV 03/27/17 14:00 03/27/17 12:34 Ceftriaxone Sodium 2000 mg/ Sodium Chloride 100 ml @ 200 mls/hr Q12H IV 03/27/17 17:00 03/27/17 18:27 Vancomycin HCl 1250 mg/Sodium Chloride 262.5 ml @ 262.5 mls/ hr Q12H IV 03/27/17 15:00 03/27/17 14:07 (Vancomycin Consult Pharmacy) 0 ml @ 0 mls/hr UNSCH OTHER 03/27/17 05:45 Miscellaneous Information SPECIFIC LAB TO BE [facility]... ONCE ONCE .XX 03/28/17 14:45 03/28/17 14:46 Exam I&O / VS Vital Signs Date Time Temp Pulse Resp B/P Pulse Ox O2 Delivery O2 Flow Rate FiO2 03/27/17 16:00 100.0 90 20 132/77 99 03/27/17 12:00 97.9 78 20 128/79 98 03/27/17 09:20 97.7 99 20 143/84 99 03/27/17 07:24 83 18 132/75 99 03/27/17 01:53 98 2 03/27/17 01:53 98.4 108 13 162/93 98 03/27/17 01:53 108 13 98 Room Air 03/27/17 01:53 18 98 Nasal Cannula General: Alert and Oriented, No acute distress Eye: EOMI Respiratory: Non-labored respirations Musculoskeletal: ROM, Swelling Neurologic: Alert, Oriented, Normal sensory, Normal motor, No focal defects, CN II-XII intact, Gag reflex normal, Normal DTR's Psychiatric: Cooperative, Appropriate mood & affect, Normal judgement, Non- suicidal Exam Comments a and o x 3. no aphasia, articulate, follows, mild neck swelling and slight neck stiffness, eomi, ou 3-2mm, face sym, no focal weakness, gait has been stable Review/Management Diagnosis/Plan: (1) Febrile illness Plan: infection/dehydration/fever/vasovagal probable cause of syncope mildly elevated csf wbc/protein, lymphocyte dominant may have mild meningitis 2/2 febrile illness 2/2 virus? cat scratch? recs eeg mri brain w/wo contrast tele for now i.d. following d/w pt and parents (2) Viral illness Plan: i.d. following Asad Mayo MD March 27, 2017 19:09
[2017-03-27 19:59] VITALS: BP 153/95; PULSE 104; RESP 14; TEMP 98.6; O2SAT 99
[2017-03-28 00:48] VITALS: BP 132/80; PULSE 108; RESP 16; TEMP 100.1; O2SAT 98
[2017-03-28 01:15] VITALS: PULSE 104
[2017-03-28] MEDS: VANCOMYCIN INJ 1,250 MG in SODIUM CHLOR 0.9% 250 ML INJ 250 ML IV SCH ×2 (03:04→15:00)
[2017-03-28] MEDS: cefTRIAXone INJ 2,000 MG in SODIUM CHLORIDE 0.9% INJ 100 ML IV SCH ×2 (04:08→16:10)
[2017-03-28 05:08] LABS: CHLAMYDIA PCR NOT DETECTED (NOT DETECT); NEISSERIA PCR NOT DETECTED (NOT DETECT)
[2017-03-28 05:20] VITALS: BP 139/88; PULSE 93; RESP 17; TEMP 98.7; O2SAT 99
[2017-03-28] MEDS: ACYCLOVIR IV SCH ×2 (06:20→13:22)
[2017-03-28] MEDS: SODIUM CHLORIDE 0.9% IV SCH ×2 (06:20→13:22)
--- NOTE | 2017-03-28 07:45 | HHI.PR ---
Review/Management Diagnosis/Plan: (1) Meningitis Plan: infection/dehydration/fever/vasovagal probable cause of syncope mildly elevated csf wbc/protein, lymphocyte dominant may have mild meningitis 2/2 febrile illness 2/2 virus? cat scratch? recs exam stable eeg-pending mri brain w/wo contrast-pending tele for now cx's-pending i.d. following (2) Febrile illness Plan: t max 100.1 (3) Viral illness Plan: i.d. following Subjective Subjective Comments No acute events reported mild headache/neck pain and neck swelling sensation no n/v No chest pain No dyspnea Active Medications Current Medications Medications (Trade) Dose Ordered Sig/Emi Route Start Time Stop Time Status Last Admin (NS Flush) 2 ml UNSCH PRN IV FLUSH 03/27/17 05:30 (NS Flush) 2 ml BID IV FLUSH 03/27/17 09:00 03/27/17 20:55 (Tylenol) 650 mg Q4H PRN PO 03/27/17 05:30 03/27/17 22:05 (Zofran Inj) 4 mg Q6H PRN IVP 03/27/17 05:30 Naloxone HCl 0.4 mg 0.4 mg UNSCH PRN IV 03/27/17 05:30 Acyclovir Sodium 780 mg/Sodium Chloride 150 ml @ 150 mls/hr Q8H IV 03/27/17 14:00 03/28/17 06:20 Ceftriaxone Sodium 2000 mg/ Sodium Chloride 100 ml @ 200 mls/hr Q12H IV 03/27/17 17:00 03/28/17 04:08 Vancomycin HCl 1250 mg/Sodium Chloride 262.5 ml @ 262.5 mls/ hr Q12H IV 03/27/17 15:00 03/28/17 03:04 (Vancomycin Consult Pharmacy) 0 ml @ 0 mls/hr UNSCH OTHER 03/27/17 05:45 Miscellaneous Information SPECIFIC LAB TO BE [facility]... ONCE ONCE .XX 03/28/17 14:45 03/28/17 14:46 Allergies Allergies Coded Allergies No Known Allergies (Unverified03/27/17) Review of Systems All other ROS: ROS reviewed as documented in chart Exam I&O / VS 03/27/17 03/27/17 03/28/17 15:00 23:00 07:00 Intake Total 793 ml 120 ml Output Total 400 ml Balance 793 ml -280 ml Intake Oral 120 ml IV Total 793 ml Output Urine Total 400 ml # Voids 2 2 # Bowel Movements 0 0 Vital Signs Date Time Temp Pulse Resp B/P Pulse Ox O2 Delivery O2 Flow Rate FiO2 03/28/17 05:20 98.7 93 17 139/88 99 03/28/17 01:15 104 03/28/17 00:48 100.1 108 16 132/80 98 03/27/17 19:59 98.6 104 14 153/95 99 03/27/17 16:00 100.0 90 20 132/77 99 03/27/17 12:00 97.9 78 20 128/79 98 03/27/17 09:20 97.7 99 20 143/84 99 General: Alert and Oriented, No acute distress Eye: EOMI Respiratory: Non-labored respirations Musculoskeletal: ROM, Swelling Neurologic: Alert, Oriented, Normal sensory, Normal motor, No focal defects, CN II-XII intact, Gag reflex normal, Normal DTR's Psychiatric: Cooperative, Appropriate mood & affect, Normal judgement, Non- suicidal Exam Comments a and o x 3. no aphasia, articulate, follows, mild neck swelling and slight neck stiffness, eomi, ou 3-2mm, face sym, no focal weakness, gait has been stable Objective Micro and Labs Laboratory Tests Test 03/27/17 19:15 C-Reactive Protein 6.30 Date/Time Procedure Status Source Growth 03/27/17 17:15 Neisseria gonorrhoeae Culture Received Throat Pending 03/27/17 03:45 Gram Stain - Final Resulted Cerebral Spinal Fluid Lumbar Puncture 03/27/17 03:45 CSF Culture Resulted Cerebral Spinal Fluid Lumbar Puncture Pending 03/27/17 02:35 Urine Culture Received Urine Catheterized Urine Pending 03/27/17 02:35 Influenza Types A,B Antigen (YENI) - Final Complete Nasal Washing NEGATIVE FOR FLU A AND B ANTIGEN.... 03/27/17 02:05 Aerobic Blood Culture Received Blood Peripheral Pending 03/27/17 02:05 Anaerobic Blood Culture Received Blood Peripheral Pending 03/27/17 02:00 Group A Streptococcus Screen (YENI) - Final Complete Throat 03/27/17 02:00 Group A Streptococcus Screen Received Throat Pending Asad Mayo MD March 28, 2017 07:45
[2017-03-28 08:13] VITALS: BP 153/85; PULSE 101; RESP 20; TEMP 98.4; O2SAT 96
[2017-03-28 08:27] LABS: HEMATOCRIT 41.8 % (39.0-51.0); MEAN CELL VOLUME 85.4 FL (80.0-100.0); MEAN CORPUSCULAR HEMOGLOBIN 29.1 PG (27.0-34.0); MEAN CORPUSCULAR HGB CONC 34.1 % (32.0-36.0); PLATELET COUNT 193 TH/MM3 (150-450); RED BLOOD COUNT 4.89 MIL/MM3 (4.50-5.90); RED CELL DISTRIBUTION WIDTH 13.9 % (11.6-17.2); REVIEW FLAG FINAL; WHITE BLOOD COUNT 15.3 TH/MM3 (4.0-11.0)
[2017-03-28 08:53] LABS: BICARBONATE 27.9 MEQ/L (21.0-32.0)
[2017-03-28 08:56] LABS: POTASSIUM 4.2 MEQ/L (3.5-5.1)
[2017-03-28] MEDS: SODIUM CHLORIDE 0.9% FLUSH 10 ML FLUSH IV FLUSH SCH ×2 (09:56→21:02)
--- NOTE | 2017-03-28 10:00 | MB ---
cc: WOODY ANGELA MD DATE OF CONSULTATION 03/28/2017 CHIEF COMPLAINT Neck pain. HISTORY OF PRESENT ILLNESS This is a 32-year-old male who has been in his usual state of health with no significant problems until approximately two days ago he passed out and was brought to the emergency room from a fainting episodes. He reports that approximately two days prior to this passing out, he noted what he felt was enlarged lymph nodes in his neck that were tender and painful and he just felt that it continued to worsen and then he fainted or passed out and was brought to the emergency room. Currently he is being treated and worked up for meningitis that was diagnosed as being followed by infectious disease. He has had mild fevers. He reports he does feel like he has some swelling in his face bilaterally as well as in his neck. He has had multiple CT scans, as well as scheduled to have an MRI scan of his brain. He is having no difficulty with a odynophagia or dysphagia, otalgia or trismus. He has had no dental work recently. He has had contact with a cat and was scratched approximately a week prior to any of this incident. PAST SURGICAL HISTORY Ear tubes as a child. PAST MEDICAL HISTORY None ALLERGIES NO KNOWN DRUG ALLERGIES. MEDICATIONS He has no active medications as an outpatient. 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 He has no history of ethanol abuse, smoking or drug abuse. PHYSICAL EXAM The patient is alert and oriented x3 in no acute distress. He is afebrile. Vital signs stable. HEENT: His exam reveals mild parotid swelling bilaterally as well as mild from submandibular swelling. NECK: No definitive adenopathy is palpable in the neck. He has some generalized tenderness in the neck. His oral cavity and oropharyngeal exam reveals no masses, lesions or ulcerations. No evidence of dental caries or poor dental hygiene. Flexible laryngoscopy at bedside shows an oropharynx without mass, lesions or ulcerations. No evidence of peritonsillar abscesses or retropharyngeal abscesses and no exophytic exudate noted in the pharynx. CT scan of the neck shows no fluid collections, no abnormal adenopathy, normal-appearing submandibular glands and the parotid glands. CT scan maxillofacial shows no evidence of abscesses, lesions or masses and a normal examination. ASSESSMENT/PLAN Patient with possibly cat scratch disease. We will defer to infectious disease for further management of this as well as possible meningitis or possible meningeal symptoms causing the neck pain. Infectious disease is continuing to follow for this at this time. I see no evidence of abnormal lymph nodes or abscesses in need of draining. He does have some mild parotid swelling bilaterally, would recommend sialogogues as well as warm compresses. This may also be in relation to a Bartonella infection. However, there is no evidence of acute parotitis at this time. Please reconsult should the patient develop any new symptoms or changes to his neck exam. Woody Angela AT/DJL /9:10 AM /9:46 AM
[2017-03-28 10:31] LABS: HSV 1,PCR Negative (Negative)
[2017-03-28] MEDS ORDERED: GADODIAMIDE PF 287 MG/ML 5 ML VIAL (for RAD MRI) IV ONE (11:58)
--- NOTE | 2017-03-28 12:05 | RADRPT ---
EXAM DATE/TIME: 03/28/2017 11:34 [place] COMPARISON: No previous studies available for comparison. INDICATIONS : Syncope. Fell and hit left side of head. CONTRAST: 15 cc Omniscan (gadodiamide) IV MEDICAL HISTORY : None. SURGICAL HISTORY : ear tube surgery ENCOUNTER: Subsequent ACUITY: 2 day PAIN SCORE: 0/10 LOCATION: cranial TECHNIQUE: Multiplanar, multisequence MRI of the brain was performed both prior to and following the administration of paramagnetic contrast. FINDINGS: CEREBRUM: The ventricles are normal for age. No evidence of midline shift, mass lesion, hemorrha ge or acute infarction. No extraaxial fluid collections are seen. The pituitary gland and suprasell ar cistern are normal in configuration. WHITE MATTER: No significant signal abnormalities are seen in the white matter. POSTERIOR FOSSA: The cerebellum and brainstem are intact. The 4th ventricle is midline. The cere bellopontine angle is unremarkable. The cerebellar tonsils are normal in position. DIFFUSION IMAGING: No focal areas of restricted diffusion are seen. No evidence of acute infarct ion. EXTRACRANIAL: The visualized portions of the orbits and paranasal sinuses are unremarkable. POST-CONTRAST: No abnormal areas of parenchymal or dural enhancement. No evidence of blood-brain barrier breakdown. CONCLUSION: Negative MRI of the brain performed without and with contrast. Ismael Lopez MD FACR on March 28, 2017 at 12:01 Board Certified Radiologist. This report was verified electronically.
--- NOTE | 2017-03-28 12:10 | MG ---
cc: KAY OSPINA MD, DALIA M.D. Lab No: [id number] Date: 03/28/2017 : 1985 Sex: M Awake, drowsy, asleep, with good hyperventilatory effort and photic stimulation. CT normal. A 32-year-old man admitted with fever, swollen lymph nodes, neck pain, questionable seizure versus syncope. 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 History of asthma, alcohol, caffeine use. On Rocephin, vancomycin, acyclovir and Tylenol. DESCRIPTION OF RECORD A little bit of artifact is noted. The overall background is 8.5 Hz, 20-40 microvolts. There is a lot of muscle artifact. The patient was asked to relax his jaw. Overall symmetrical background. EKG looks sinus. Hyperventilation was performed with no change in the background. Photic stimulation with minimal driving response noted. No epileptic activity. IMPRESSION Overall normal-appearing EEG. No evidence of any epileptiform features. Clinical correlation. MD RY Rolle/CECILIO /11:43 AM /11:56 AM
--- NOTE | 2017-03-28 12:40 | HHI.PR ---
Subjective Remarks in no acute distress. says that he's feeling better today. low grade fever last night. no other complaints. Objective Vitals Vital Signs Date Time Temp Pulse Resp B/P Pulse Ox O2 Delivery O2 Flow Rate FiO2 03/28/17 08:13 98.4 101 20 153/85 96 03/28/17 05:20 98.7 93 17 139/88 99 03/28/17 01:15 104 03/28/17 00:48 100.1 108 16 132/80 98 03/27/17 19:59 98.6 104 14 153/95 99 03/27/17 16:00 100.0 90 20 132/77 99 I/O 03/27/17 03/27/17 03/27/17 03/28/17 03/28/17 03/28/17 06:59 14:59 22:59 06:59 14:59 22:59 Intake Total 793 ml 120 ml Output Total 400 ml Balance 793 ml -280 ml Intake Oral 120 ml IV Total 793 ml Output Urine Total 400 ml # Voids 2 2 # Bowel Movements 0 0 Result Diagram: 03/28/17 0800 03/28/17 0800 Imaging Last Impressions Brain MRI 03/28/17 0000 Signed Impressions: Service Date/Time: Tuesday, March 28, 2017 11:34 - CONCLUSION: Negative MRI of the brain performed without and with contrast. Ismael Lopez MD FACR Chest X-Ray 03/27/17 0205 Signed Impressions: Service Date/Time: Monday, March 27, 2017 02:23 - CONCLUSION: Normal examination. Dedrick Harley Jr., MD Neck CT 03/27/17 0000 Signed Impressions: Service Date/Time: Monday, March 27, 2017 18:12 - CONCLUSION: No evidence of abscess Chuy Ruelas MD Maxillofacial CT 03/27/17 0000 Signed Impressions: Service Date/Time: Monday, March 27, 2017 18:03 - CONCLUSION: Normal examination. Chuy Ruelas MD Head CT 03/27/17 0000 Signed Impressions: Service Date/Time: Monday, March 27, 2017 02:47 - CONCLUSION: Normal examination. Dedrick Harley Jr., MD Objective Remarks GENERAL: This is a well-nourished, well-developed patient, in no apparent distress. CARDIOVASCULAR: Regular rate and regular rhythm without murmurs, gallops, or rubs. RESPIRATORY: Clear to auscultation. Breath sounds equal bilaterally. No wheezes , rales, or rhonchi. GASTROINTESTINAL: Abdomen soft, non-tender, nondistended. Normal, active bowel sounds MUSCULOSKELETAL: Extremities without clubbing, cyanosis, or edema. NEURO: Alert & Oriented x4 to person, place, time, situation. Moves all ext x4 Procedures LP Medications and IVs Current Medications Acetaminophen (Tylenol) 650 mg ONCE ONCE PO Last administered on 03/27/17 02: 40; Start 03/27/17 at 02:15; Stop 03/27/17 at 02:16; Status DC Iohexol 80 ml 80 ml STK-MED ONCE IV Last administered on 03/27/17 02:13; Start 03/27/17 at 02:13; Stop 03/27/17 at 02:18; Status DC Vancomycin HCl 1000 mg/Sodium Chloride 250 ml @ 250 mls/hr ONCE ONCE IV Last administered on 03/27/17 07:24; Start 03/27/17 at 05:00; Stop 03/27/17 at 05:59; Status DC Ceftriaxone Sodium 2000 mg/ Sodium Chloride 100 ml @ 200 mls/hr ONCE ONCE IV Last administered on 03/27/17 05:21; Start 03/27/17 at 05:00; Stop 03/27/17 at 05: 29; Status DC Acyclovir Sodium/ Sodium Chloride (Zovirax Inj/NS Inj) 150 ml @ 150 mls/hr ONCE ONCE IV Last administered on 03/27/17 09:15; Start 03/27/17 at 05:00; Stop 03/27/17 at 05:59; Status DC Sodium Chloride (NS Flush) 2 ml UNSCH PRN IV FLUSH FLUSH AFTER USING IV ACCESS ; Start 03/27/17 at 05:30 Sodium Chloride (NS Flush) 2 ml BID IV FLUSH Last administered on 03/28/17 09: 56; Start 03/27/17 at 09:00 Acetaminophen (Tylenol) 650 mg Q4H PRN PO TEMP > 100.4 Last administered on 03/27 22:05; Start 03/27/17 at 05:30 Ondansetron HCl (Zofran Inj) 4 mg Q6H PRN IVP NAUSEA OR VOMITING; Start at 05:30 Naloxone HCl 0.4 mg 0.4 mg UNSCH PRN IV SEE LABEL COMMENTS; Start 03/27/17 at 05 :30 Acyclovir Sodium 780 mg/Sodium Chloride 150 ml @ 150 mls/hr Q8H IV Last administered on 03/28/17 06:20; Start 03/27/17 at 14:00 Ceftriaxone Sodium 2000 mg/ Sodium Chloride 100 ml @ 200 mls/hr Q12H IV Last administered on 03/28/17 04:08; Start 03/27/17 at 17:00 Vancomycin HCl 1250 mg/Sodium Chloride 262.5 ml @ 262.5 mls/ hr Q12H IV Last administered on 03/28/17 03:04; Start 03/27/17 at 15:00 Pharmacy Profile Note (Vancomycin Consult Pharmacy) 0 ml @ 0 mls/hr UNSCH OTHER ; Start 03/27/17 at 05:45 Miscellaneous Information SPECIFIC LAB TO BE [facility]... ONCE ONCE .XX ; Start 03/28 at 14:45; Stop 03/28/17 at 14:46 Iohexol (Omnipaque 350 Inj) 80 ml STK-MED ONCE IV Last administered on 18:27; Start 03/27/17 at 18:27; Stop 03/27/17 at 18:28; Status DC Doxycycline Hyclate (Vibramycin) 100 mg BID PO ; Start 03/28/17 at 11:45 Gadodiamide (Omniscan Pf Inj) 15 ml STK-MED ONCE IV ; Start 03/28/17 at 11:58; Stop 03/28/17 at 11:59; Status DC A/P Assessment and Plan A/P - possible viral meningitis MRI brain negative. bartonella serology pending. ID and neurology following. continue with IV antibiotics and follow the culture. -bilateral parotid swelling with no evidence of acute parotitis ENT consult appreciated. Godfrey Mccarty MD March 28, 2017 12:40
[2017-03-28] MEDS: DOXYCYCLINE HYCLATE 100 MG CAP PO SCH ×2 (13:22→21:01)
[2017-03-28] MEDS ORDERED: PHARMACY ORDERED LAB ONE (14:45)
--- NOTE | 2017-03-28 15:21 | HHI.IDPN ---
Subjective Subjective Remarks is a 32 y/o CM with no significant past medical history who presented to ER after he passed out last night. He says that he had a painful enlarged cervical lymph node two days ago and this started to get worse. He denies any fever at the time although had some chills. he says that last night when he went to take some motrin he felt diaphoretic and then passed out. he denies any chest pain or so prior to the incident. there's no report of any seizures. he denies any sick contact or recent trips.he denies any headache although he says that he had some pain on moving his neck last night. No fever, chills, night sweats. No rash No diarrhea No joint pains or rheum like symptoms prior to admission. ID consulted for evaluation and Mment of possible meningitis. Antibiotics Acyclovir IV Ceftriaxone IV Vanco IV Lines Line sites with no infection. Past Medical History reviewed Allergies: Coded Allergies: No Known Allergies (Unverified , 03/27/17) Objective . Vital Signs Date Time Temp Pulse Resp B/P Pulse Ox O2 Delivery O2 Flow Rate FiO2 03/28/17 08:13 98.4 101 20 153/85 96 03/28/17 05:20 98.7 93 17 139/88 99 03/28/17 01:15 104 03/28/17 00:48 100.1 108 16 132/80 98 03/27/17 19:59 98.6 104 14 153/95 99 03/27/17 16:00 100.0 90 20 132/77 99 03/27/17 03/27/17 03/28/17 15:00 23:00 07:00 Intake Total 793 ml 120 ml Output Total 400 ml Balance 793 ml -280 ml Intake Oral 120 ml IV Total 793 ml Output Urine Total 400 ml # Voids 2 2 # Bowel Movements 0 0 . Laboratory Tests Test 03/27/17 03/28/17 02:15 08:00 White Blood Count 15.5 TH/MM3 15.3 TH/MM3 Red Blood Count 5.05 MIL/MM3 4.89 MIL/MM3 Hemoglobin 14.2 GM/DL 14.3 GM/DL Hematocrit 43.7 % 41.8 % Mean Corpuscular Volume 86.5 FL 85.4 FL Mean Corpuscular Hemoglobin 28.2 PG 29.1 PG Mean Corpuscular Hemoglobin 32.6 % 34.1 % Concent Red Cell Distribution Width 14.0 % 13.9 % Platelet Count 191 TH/MM3 193 TH/MM3 Mean Platelet Volume 8.8 FL 9.3 FL Neutrophils (%) (Auto) 75.6 % Lymphocytes (%) (Auto) 13.9 % Monocytes (%) (Auto) 8.8 % Eosinophils (%) (Auto) 1.3 % Basophils (%) (Auto) 0.4 % Neutrophils # (Auto) 11.7 TH/MM3 Lymphocytes # (Auto) 2.2 TH/MM3 Monocytes # (Auto) 1.4 TH/MM3 Eosinophils # (Auto) 0.2 TH/MM3 Basophils # (Auto) 0.1 TH/MM3 CBC Comment DIFF FINAL Differential Comment Laboratory Tests Test 03/27/17 03/27/17 03/28/17 02:15 19:15 08:00 Sodium Level 142 MEQ/L 141 MEQ/L Potassium Level 3.7 MEQ/L 4.2 MEQ/L Chloride Level 110 MEQ/L 105 MEQ/L Carbon Dioxide Level 25.9 MEQ/L 27.9 MEQ/L Anion Gap 6 MEQ/L 8 MEQ/L Blood Urea Nitrogen 17 MG/DL 8 MG/DL Creatinine 1.22 MG/DL 0.98 MG/DL Estimat Glomerular Filtration 69 ML/MIN 89 ML/MIN Rate Random Glucose 134 MG/DL 83 MG/DL Lactic Acid Level 1.1 mmol/L Calcium Level 8.3 MG/DL 8.5 MG/DL Magnesium Level 2.0 MG/DL Total Bilirubin 0.7 MG/DL Aspartate Amino Transf 8 U/L (AST/SGOT) Alanine Aminotransferase 14 U/L (ALT/SGPT) Alkaline Phosphatase 62 U/L Troponin I LESS THAN 0.02 NG/ML Total Protein 6.8 GM/DL Albumin 3.6 GM/DL Lipase 118 U/L C-Reactive Protein 6.30 MG/DL Microbiology Date/Time Procedure Status Source Growth 03/27/17 02:00 Aerobic Blood Culture - Preliminary Resulted Blood Peripheral NO GROWTH IN 1 DAY 03/27/17 02:00 Anaerobic Blood Culture - Preliminary Resulted Blood Peripheral NO GROWTH IN 1 DAY 03/27/17 02:00 Group A Streptococcus Screen (YENI) - Final Complete Throat 03/27/17 02:00 Group A Streptococcus Screen - Preliminary Resulted Throat NO BETA STREPTOCOCCI ISOLATED AT 24 H... 5/9/17 02:05 Aerobic Blood Culture - Preliminary Resulted Blood Peripheral NO GROWTH IN 1 DAY 03/27/17 02:05 Anaerobic Blood Culture - Preliminary Resulted Blood Peripheral NO GROWTH IN 1 DAY 03/27/17 02:35 Influenza Types A,B Antigen (YENI) - Final Complete Nasal Washing NEGATIVE FOR FLU A AND B ANTIGEN.... 03/27/17 02:35 Urine Culture - Final Complete Urine Catheterized Urine 10-50,000 CFU/ML MIXED GRAM POSITIVE ... 03/27/17 03:45 Gram Stain - Final Resulted Cerebral Spinal Fluid Lumbar Puncture 03/27/17 03:45 CSF Culture - Preliminary Resulted Cerebral Spinal Fluid Lumbar Puncture NO GROWTH IN 24 HOURS. 03/27/17 17:15 Neisseria gonorrhoeae Culture Received Throat Pending Imaging Last Impressions Brain MRI 03/28/17 0000 Signed Impressions: Service Date/Time: Tuesday, March 28, 2017 11:34 - CONCLUSION: Negative MRI of the brain performed without and with contrast. Ismael Lopez MD FACR Chest X-Ray 03/27/17 0205 Signed Impressions: Service Date/Time: Monday, March 27, 2017 02:23 - CONCLUSION: Normal examination. Dedrick Harley Jr., MD Neck CT 03/27/17 0000 Signed Impressions: Service Date/Time: Monday, March 27, 2017 18:12 - CONCLUSION: No evidence of abscess Chuy Ruelas MD Maxillofacial CT 03/27/17 0000 Signed Impressions: Service Date/Time: Monday, March 27, 2017 18:03 - CONCLUSION: Normal examination. Chuy Ruelas MD Head CT 03/27/17 0000 Signed Impressions: Service Date/Time: Monday, March 27, 2017 02:47 - CONCLUSION: Normal examination. Dedrick Harley Jr., MD Physical Exam GENERAL: This is a well-nourished, well-developed patient, in no apparent distress. SKIN: No rashes, ecchymoses or lesions. Cool and dry. HEAD: Atraumatic. Normocephalic. No temporal or scalp tenderness. EYES: Pupils equal round and reactive. Extraocular motions intact. No scleral icterus. No injection or drainage. ENT: Nose without bleeding, purulent drainage or septal hematoma. Throat without erythema, tonsillar hypertrophy or exudate. Uvula midline. Airway patent. NECK: Trachea midline. Right neck with significant swelling, erythema, warmth, tenderness. Bimanual exam of oral cavity performed with no ballotment noted. Left submandibular tenderness and swelling noted significantly improved. CARDIOVASCULAR: Regular rate and rhythm without murmurs, gallops, or rubs. RESPIRATORY: Clear to auscultation. Breath sounds equal bilaterally. No wheezes , rales, or rhonchi. GASTROINTESTINAL: Abdomen soft, non-tender, nondistended. MUSCULOSKELETAL: Extremities without clubbing, cyanosis, or edema. No joint tenderness, effusion, or edema noted. No calf tenderness. Negative Homans sign bilaterally. NEUROLOGICAL: Awake and alert. Grossly non focal Psych: cooperative IV line sites with no e/o infection Assessment & Plan Remarks Possible meningoencephalitis vs parameningeal focus of infection related to neck swelling. Right side neck swelling ? cellulitis of Skin soft tissue. Syncope prior to admission Abnormal LP Leucocytosis Elevated CRP. Recs: DC vanco IV Continue ceftriaxone IV DC Acyclovir IV Start Oral Doxy (pts Mom reports he traveled to [place] recently and they have dogs with ticks) Order Lyme serology and CSF B.Burgdoferi studies. Follow bartonella serology CT facial bones: negative CT soft tissue neck: negative ENT consult (acute neck swelling): appreciated. Appreciate Neurology consult MRI negative, EEG negative 2D ECHO pending. If overnight good response to change in regimen will likely DC home based on my follow up exam. Catherine Garcia MD March 28, 2017 15:21
[2017-03-28 16:34] VITALS: BP 169/96; PULSE 105; RESP 20; TEMP 99.2; O2SAT 99
--- NOTE | 2017-03-28 19:02 | EC ---
Study Study Date:03/28/2017 STUDY CONCLUSIONS SUMMARY - Left ventricle: The cavity size was normal. Wall thickness was normal. Systolic function was normal. The estimated ejection fraction was 55%. Wall motion was normal; there were no regional wall motion abnormalities. - Aortic valve: Transvalvular velocity was minimally increased. There was no stenosis. - Mitral valve: Mild regurgitation. - Tricuspid valve: Mild regurgitation. - Pulmonary arteries: Systolic pressure was mildly increased, estimated to be 45mm Hg. If LV function is below 40, please consider prescribing an ACEI or ARB or document rationale for non-use. PROCEDURE DATA STUDY STATUS: Elective. Procedure: Transthoracic echocardiography. Image quality was good. Scanning was performed from the parasternal, apical, and subcostal acoustic windows. Study completion: The patient tolerated the procedure well. Transthoracic echocardiography. M-mode, complete 2D, complete spectral Doppler, and color Doppler. Patient status: Inpatient. CARDIAC ANATOMY LEFT VENTRICLE: The cavity size was normal. Wall thickness was normal. Systolic function was normal. The estimated ejection fraction was 55%. Wall motion was normal; there were no regional wall motion abnormalities. AORTIC VALVE: Trileaflet; normal thickness leaflets. Doppler: Transvalvular velocity was minimally increased. There was no stenosis. No regurgitation. Valve area: 3.22cm^2 (Vmax). AORTA: Aortic root: The aortic root was normal in size. MITRAL VALVE: Structurally normal valve. Doppler: Transvalvular velocity was within the normal range. There was no evidence for stenosis. Mild regurgitation. Peak gradient: 3mm Hg (D). LEFT ATRIUM: The atrium was normal in size. RIGHT VENTRICLE: The cavity size was normal. Wall thickness was normal. PULMONIC VALVE: Doppler: Transvalvular velocity was within the normal range. There was no evidence for stenosis. No regurgitation. TRICUSPID VALVE: Structurally normal valve. Doppler: Transvalvular velocity was within the normal range. Mild regurgitation. PULMONARY ARTERY: The main pulmonary artery was normal-sized. Systolic pressure was mildly increased, estimated to be 45mm Hg. RIGHT ATRIUM: The atrium was normal in size. PERICARDIUM: There was no pericardial effusion. SYSTEMIC VEINS: Inferior vena cava: The vessel was normal in size. BASIC MEASUREMENTS ADULT NORMAL Left ventricle LV internal dimension, ED, chordal level, 48.7 mm 43-52 PLAX LV internal dimension, ES, chordal level, 34.4 mm 23-38 PLAX Fractional shortening, chordal level, PLAX *29 % >29 LV posterior wall thickness, ED 9.35 mm IVS/LVPW ratio, ED 0.99 <1.3 Ventricular septum Septal thickness, ED 9.29 mm Aortic valve Leaflet separation 15 mm 15-26 Right ventricle RV internal dimension, ED, PLAX 24.4 mm 19-38 BASIC MEASUREMENTS ADULT NORMAL Aortic valve Leaflet separation 15 mm 15-26 Aorta Root diameter, ED 25 mm 20-37 Left atrium Anterior-posterior dimension, ES 26 mm 19-40 LA/aortic root ratio 1.04 DOPPLER MEASUREMENTS ADULT NORMAL Aortic valve Peak velocity, S 129 cm/s Valve area, Vmax 3.22 cm^2 Mitral valve Peak E-wave velocity 86.4 cm/s Peak A-wave velocity 86.9 cm/s Deceleration time *120 ms 150-230 Peak gradient, D 3 mm Hg Peak E/A ratio 1 Pulmonic valve Peak velocity, S 119 cm/s LEGEND: Mean values are shown as u=mean value. Asterisk (*) prather values outside specified normal range. Prepared and signed by José Miguel Nation [id number]
[2017-03-28 21:10] VITALS: BP 150/81; PULSE 103; RESP 20; TEMP 98.7; O2SAT 100
[2017-03-29 00:48] LABS: BARTONELLA HENSELAE IGG <1:128 titer (<1:128); BARTONELLA HENSELAE IGM <1:20 titer (<1:20); BARTONELLA QUINTANA IGM <1:20 titer (<1:20)
[2017-03-29 01:04] VITALS: BP 163/99; PULSE 91; RESP 20; TEMP 98.5; O2SAT 100
[2017-03-29 01:04] LABS: EBV VCA IgM Negative (Negative)
[2017-03-29 02:54] VITALS: PULSE 80
[2017-03-29] MEDS: cefTRIAXone INJ 2,000 MG in SODIUM CHLORIDE 0.9% INJ 100 ML IV SCH (05:30)
[2017-03-29 06:00] VITALS: PULSE 90
[2017-03-29 06:05] VITALS: BP 134/73; PULSE 98; RESP 20; TEMP 98.9; O2SAT 94
[2017-03-29 08:00] VITALS: BP 125/66; PULSE 91; RESP 20; TEMP 98.8; O2SAT 98
--- NOTE | 2017-03-29 09:19 | HHI.PR ---
Review/Management Diagnosis/Plan: (1) Meningitis Plan: infection/dehydration/fever/vasovagal probable cause of syncope mildly elevated csf wbc/protein, lymphocyte dominant may have mild meningitis 2/2 febrile illness 2/2 virus? cat scratch? recs exam stable eeg-negative mri brain w/wo contrast-nml cx's-pending d/c planning (2) Febrile illness Plan: afebrile now (3) Viral illness Plan: i.d. following Subjective Subjective Comments No acute events reported No headache No chest pain No dyspnea Active Medications Current Medications Medications (Trade) Dose Ordered Sig/Emi Route Start Time Stop Time Status Last Admin (NS Flush) 2 ml UNSCH PRN IV FLUSH 03/27/17 05:30 (NS Flush) 2 ml BID IV FLUSH 03/27/17 09:00 03/28/17 21:02 (Tylenol) 650 mg Q4H PRN PO 03/27/17 05:30 03/27/17 22:05 (Zofran Inj) 4 mg Q6H PRN IVP 03/27/17 05:30 Naloxone HCl 0.4 mg 0.4 mg UNSCH PRN IV 03/27/17 05:30 (Rocephin Inj/NS Inj) 100 ml @ 200 mls/hr Q12H IV 03/27/17 17:00 03/29/17 05:30 (Vibramycin) 100 mg BID PO 03/28/17 11:45 03/28/17 21:01 Allergies Allergies Coded Allergies No Known Allergies (Unverified03/27/17) Review of Systems All other ROS: ROS reviewed as documented in chart Exam I&O / VS 03/28/17 03/28/17 03/29/17 15:00 23:00 07:00 # Voids 6 2 # Bowel Movements 0 1 Vital Signs Date Time Temp Pulse Resp B/P Pulse Ox O2 Delivery O2 Flow Rate FiO2 03/29/17 08:00 98.8 91 20 125/66 98 03/29/17 06:05 98.9 98 20 134/73 94 03/29/17 02:54 80 03/29/17 01:04 98.5 91 20 163/99 100 03/28/17 21:10 98.7 103 20 150/81 100 03/28/17 16:34 99.2 105 20 169/96 99 General: Alert and Oriented, No acute distress Eye: EOMI Respiratory: Non-labored respirations Musculoskeletal: ROM, Swelling Neurologic: Alert, Oriented, Normal sensory, Normal motor, No focal defects, CN II-XII intact, Gag reflex normal, Normal DTR's Psychiatric: Cooperative, Appropriate mood & affect, Normal judgement, Non- suicidal Exam Comments a and o x 3. no aphasia, articulate, follows, mild neck swelling and slight neck stiffness, eomi, ou 3-2mm, face sym, no focal weakness, gait has been stable Objective Micro and Labs Date/Time Procedure Status Source Growth 03/27/17 17:15 Neisseria gonorrhoeae Culture - Preliminary Resulted Throat RESULTS PENDING 03/27/17 03:45 Gram Stain - Final Resulted Cerebral Spinal Fluid Lumbar Puncture 03/27/17 03:45 CSF Culture - Preliminary Resulted Cerebral Spinal Fluid Lumbar Puncture NO GROWTH IN 48 HOURS. 03/27/17 02:35 Urine Culture - Final Complete Urine Catheterized Urine 10-50,000 CFU/ML MIXED GRAM POSITIVE ... 03/27/17 02:35 Influenza Types A,B Antigen (YENI) - Final Complete Nasal Washing NEGATIVE FOR FLU A AND B ANTIGEN.... 03/27/17 02:05 Aerobic Blood Culture - Preliminary Resulted Blood Peripheral NO GROWTH IN 1 DAY 03/27/17 02:05 Anaerobic Blood Culture - Preliminary Resulted Blood Peripheral NO GROWTH IN 1 DAY 03/27/17 02:00 Group A Streptococcus Screen - Final Complete Throat NO GP A BETA STREP ISOLATED. 03/27/17 02:00 Group A Streptococcus Screen (YENI) - Final Complete Throat Asad Mayo MD March 29, 2017 09:19
[2017-03-29] MEDS: DOXYCYCLINE HYCLATE 100 MG CAP PO SCH (10:16)
[2017-03-29] MEDS: SODIUM CHLORIDE 0.9% FLUSH 10 ML FLUSH IV FLUSH SCH (10:16)
--- NOTE | 2017-03-29 12:20 | HHI.PR ---
Subjective Remarks resting comfortably with no distress. remains afebrile. overall feeling better. no new complaints. family at the bedside. Objective Vitals Vital Signs Date Time Temp Pulse Resp B/P Pulse Ox O2 Delivery O2 Flow Rate FiO2 03/29/17 08:00 98.8 91 20 125/66 98 03/29/17 06:05 98.9 98 20 134/73 94 03/29/17 02:54 80 03/29/17 01:04 98.5 91 20 163/99 100 03/28/17 21:10 98.7 103 20 150/81 100 03/28/17 16:34 99.2 105 20 169/96 99 I/O 03/28/17 03/28/17 03/28/17 03/29/17 03/29/17 03/29/17 07:00 15:00 23:00 07:00 15:00 23:00 Intake Total 120 ml Output Total 400 ml Balance -280 ml Intake Oral 120 ml Output Urine Total 400 ml # Voids 2 6 2 # Bowel Movements 0 0 1 Result Diagram: 03/28/17 0800 03/28/17 0800 Imaging Last Impressions Brain MRI 03/28/17 0000 Signed Impressions: Service Date/Time: Tuesday, March 28, 2017 11:34 - CONCLUSION: Negative MRI of the brain performed without and with contrast. Ismael Lopez MD FACR Chest X-Ray 03/27/17 0205 Signed Impressions: Service Date/Time: Monday, March 27, 2017 02:23 - CONCLUSION: Normal examination. Dedrick Harley Jr., MD Neck CT 03/27/17 Signed Impressions: Service Date/Time: Monday, March 27, 2017 18:12 - CONCLUSION: No evidence of abscess Chuy Ruelas MD Maxillofacial CT 03/27/17 0000 Signed Impressions: Service Date/Time: Monday, March 27, 2017 18:03 - CONCLUSION: Normal examination. Chuy Ruelas MD Head CT 03/27/17 0000 Signed Impressions: Service Date/Time: Monday, March 27, 2017 02:47 - CONCLUSION: Normal examination. Dedrick Harley Jr., MD Objective Remarks GENERAL: This is a well-nourished, well-developed patient, in no apparent distress. CARDIOVASCULAR: Regular rate and regular rhythm without murmurs, gallops, or rubs. RESPIRATORY: Clear to auscultation. Breath sounds equal bilaterally. No wheezes , rales, or rhonchi. GASTROINTESTINAL: Abdomen soft, non-tender, nondistended. Normal, active bowel sounds MUSCULOSKELETAL: Extremities without clubbing, cyanosis, or edema. NEURO: Alert & Oriented x4 to person, place, time, situation. Moves all ext x4 Procedures LP Medications and IVs Current Medications Acetaminophen (Tylenol) 650 mg ONCE ONCE PO Last administered on 03/27/17 02: 40; Start 03/27/17 at 02:15; Stop 03/27/17 at 02:16; Status DC Iohexol 80 ml 80 ml STK-MED ONCE IV Last administered on 03/27/17 02:13; Start 03/27/17 at 02:13; Stop 03/27/17 at 02:18; Status DC Vancomycin HCl 1000 mg/Sodium Chloride 250 ml @ 250 mls/hr ONCE ONCE IV Last administered on 03/27/17 07:24; Start 03/27/17 at 05:00; Stop 03/27/17 at 05:59; Status DC Ceftriaxone Sodium 2000 mg/ Sodium Chloride 100 ml @ 200 mls/hr ONCE ONCE IV Last administered on 03/27/17 05:21; Start 03/27/17 at 05:00; Stop 03/27/17 at 05: 29; Status DC Acyclovir Sodium/ Sodium Chloride (Zovirax Inj/NS Inj) 150 ml @ 150 mls/hr ONCE ONCE IV Last administered on 03/27/17 09:15; Start 03/27/17 at 05:00; Stop 03/27/17 at 05:59; Status DC Sodium Chloride (NS Flush) 2 ml UNSCH PRN IV FLUSH FLUSH AFTER USING IV ACCESS ; Start 03/27/17 at 05:30 Sodium Chloride (NS Flush) 2 ml BID IV FLUSH Last administered on 03/29/17 10: 16; Start 03/27/17 at 09:00 Acetaminophen (Tylenol) 650 mg Q4H PRN PO TEMP > 100.4 Last administered on 03/27 22:05; Start 03/27/17 at 05:30 Ondansetron HCl (Zofran Inj) 4 mg Q6H PRN IVP NAUSEA OR VOMITING; Start at 05:30 Naloxone HCl 0.4 mg 0.4 mg UNSCH PRN IV SEE LABEL COMMENTS; Start 03/27/17 at 05 :30 Acyclovir Sodium 780 mg/Sodium Chloride 150 ml @ 150 mls/hr Q8H IV Last administered on 03/28/17 13:22; Start 03/27/17 at 14:00; Stop 03/28/17 at 15:15 ; Status DC Ceftriaxone Sodium 2000 mg/ Sodium Chloride 100 ml @ 200 mls/hr Q12H IV Last administered on 03/29/17 05:30; Start 03/27/17 at 17:00 Vancomycin HCl 1250 mg/Sodium Chloride 262.5 ml @ 262.5 mls/ hr Q12H IV Last administered on 03/28/17 03:04; Start 03/27/17 at 15:00; Stop 03/28/17 at 15:15 ; Status DC Pharmacy Profile Note (Vancomycin Consult Pharmacy) 0 ml @ 0 mls/hr UNSCH OTHER ; Start 03/27/17 at 05:45; Stop 03/28/17 at 15:15; Status DC Miscellaneous Information SPECIFIC LAB TO BE ... ONCE ONCE .XX ; Start 03/28 at 14:45; Stop 03/28/17 at 14:46; Status DC Iohexol (Omnipaque 350 Inj) 80 ml STK-MED ONCE IV Last administered on 18:27; Start 03/27/17 at 18:27; Stop 03/27/17 at 18:28; Status DC Doxycycline Hyclate (Vibramycin) 100 mg BID PO Last administered on 03/29/17 10:16; Start 03/28/17 at 11:45 Gadodiamide (Omniscan Pf Inj) 15 ml STK-MED ONCE IV Last administered on 11:58; Start 03/28/17 at 11:58; Stop 03/28/17 at 11:59; Status DC A/P Assessment and Plan A/P - possible viral meningitis- improving. MRI brain and EEG negative. bartonella serology negative. blood cultures and CSF culture negative. Lyme serology pending. echo with EF 55% and no regional wall motion abnormalities. on IV Rocephin and PO doxycycline. ID and neurology following. -bilateral parotid swelling with no evidence of acute parotitis- seems to be improving. ENT consult appreciated. Discharge Planning dc home when cleared by ID. Godfrey Mccarty MD March 29, 2017 12:20
[2017-03-29 13:18] VITALS: BP 141/100; PULSE 97; RESP 20; TEMP 98.4; O2SAT 98
[2017-03-29] MEDS ORDERED: DOXY100C PO (14:38)
--- NOTE | 2017-03-29 14:39 | HHI.DCPOC ---
Discharge Care Plan Diagnosis: (1) Viral illness (2) Meningitis Your Health Problems Are: Inflammation Goals to Promote Your Health * To prevent worsening of your condition and complications * To maintain your health at the optimal level Directions to Meet Your Goals Take your medications as prescribed Follow your dietary instruction Follow activity as directed Keep your appointments as scheduled Take your immunizations and boosters as scheduled If your symptoms worsen call your PCP, if no PCP go to Urgent Care Center or Emergency Room Smoking is Dangerous to Your Health. Avoid second hand smoke Call the 24-hour hour crisis hotline for domestic abuse at Godfrey Mccarty MD March 29, 2017 14:39
--- NOTE | 2017-03-29 14:41 | HHI.DS ---
Discharge Summary Admission Date March 27, 2017 at 05:17 Discharge Date: March 29, 2017 Admitting Diagnosis encephalitis, cat scratch disease (1) Encephalitis ICD Code: G04.90 Diagnosis: Principal Procedures LP Brief History - From Admission patient is a 32 y/o male with no significant past medical history who presented to ER after he passed out last night. he says that he had a painful enlarged cervical lymph node two days ago. this started to get worse. he denies any fever at the time although had some chills. he says that last night when he went to take some motrin he felt diaphoretic and then passed out. he denies any chest pain or so prior to the incident. there's no report of any seizures. he denies any sick contact or recent trips.he denies any headache although he says that he had some pain on moving his neck last night. CBC/BMP: 03/28/17 0800 03/28/17 0800 Significant Findings Laboratory Tests Test 03/27/17 03/27/17 03/27/17 03/27/17 02:15 02:35 03:45 19:15 White Blood Count 15.5 TH/MM3 (4.0-11.0) Neutrophils (%) (Auto) 75.6 % (16.0-70.0) Monocytes (%) (Auto) 8.8 % (0.0-8.0) Neutrophils # (Auto) 11.7 TH/MM3 (1.8-7.7) Monocytes # (Auto) 1.4 TH/MM3 (0-0.9) Chloride Level 110 MEQ/L (98-107) Estimat Glomerular Filtration 69 ML/MIN (>89) Rate Random Glucose 134 MG/DL (74-106) Calcium Level 8.3 MG/DL (8.5-10.1) Aspartate Amino Transf 8 U/L (15-37) (AST/SGOT) Troponin I LESS THAN 0.02 NG/ML (0.02-0.05) Urine Ketones 10 mg/dL (NEG) Urine Bacteria RARE /hpf (NONE) Urine Mucus MOD /lpf (OCC) CSF WBC (Tube 4) 25 /MM3 (0-10) CSF Total Protein 63.4 MG/DL (15.0-45.0) C-Reactive Protein 6.30 MG/DL (0.00-0.30) Test 03/28/17 08:00 White Blood Count 15.3 TH/MM3 (4.0-11.0) Imaging Last Impressions Brain MRI 03/28/17 0000 Signed Impressions: Service Date/Time: Tuesday, March 28, 2017 11:34 - CONCLUSION: Negative MRI of the brain performed without and with contrast. Ismael Lopez MD FACR Chest X-Ray 03/27/17 0205 Signed Impressions: Service Date/Time: Monday, March 27, 2017 02:23 - CONCLUSION: Normal examination. Dedrick Harley Jr., MD Neck CT 03/27/17 0000 Signed Impressions: Service Date/Time: Monday, March 27, 2017 18:12 - CONCLUSION: No evidence of abscess Chuy Ruelas MD Maxillofacial CT 03/27/17 0000 Signed Impressions: Service Date/Time: Monday, March 27, 2017 18:03 - CONCLUSION: Normal examination. Chuy Ruelas MD Head CT 03/27/17 0000 Signed Impressions: Service Date/Time: Monday, March 27, 2017 02:47 - CONCLUSION: Normal examination. Dedrick Harley Jr., MD PE at Discharge GENERAL: This is a well-nourished, well-developed patient, in no apparent distress. CARDIOVASCULAR: Regular rate and regular rhythm without murmurs, gallops, or rubs. RESPIRATORY: Clear to auscultation. Breath sounds equal bilaterally. No wheezes , rales, or rhonchi. GASTROINTESTINAL: Abdomen soft, non-tender, nondistended. Normal, active bowel sounds MUSCULOSKELETAL: Extremities without clubbing, cyanosis, or edema. NEURO: Alert & Oriented x4 to person, place, time, situation. Moves all ext x4 Hospital Course - possible viral meningitis- improving. MRI brain and EEG negative. bartonella serology negative. blood cultures and CSF culture negative. Lyme serology pending. echo with EF 55% and no regional wall motion abnormalities. d/w today; cleared for discharge with f/u with pcp and ID- will discharge on Doxycyline for two weeks. -bilateral parotid swelling with no evidence of acute parotitis- seems to be improving. ENT consult appreciated. Pt Condition on Discharge: Good Discharge Disposition: Discharge Home Discharge Time: <= 30 minutes Discharge Instructions DIET: Follow Instructions for: As Tolerated, No Restrictions Activities you can perform: Regular-No Restrictions Activities to Avoid: Driving Follow up Referrals: Infectious Disease PCP Follow-up New Medications: Doxycycline Hyclate (Doxycycline Hyclate) 100 Mg Cap 100 MG PO BID infection Days 14 Ref 0 Godfrey Brambila MD March 29, 2017 14:41
--- NOTE | 2017-03-29 15:17 | HHI.IDPN ---
Subjective Subjective Remarks is a 32 y/o CM with no significant past medical history who presented to ER after he passed out last night. He says that he had a painful enlarged cervical lymph node two days ago and this started to get worse. He denies any fever at the time although had some chills. he says that last night when he went to take some motrin he felt diaphoretic and then passed out. he denies any chest pain or so prior to the incident. there's no report of any seizures. he denies any sick contact or recent trips.he denies any headache although he says that he had some pain on moving his neck last night. No fever, chills, night sweats. No rash No diarrhea No joint pains or rheum like symptoms prior to admission. ID consulted for evaluation and Mment of possible meningitis. Antibiotics Ceftriaxone IV Lines Line sites with no infection. Past Medical History reviewed Allergies: Coded Allergies: No Known Allergies (Unverified , 03/27/17) Objective . Vital Signs Date Time Temp Pulse Resp B/P Pulse Ox O2 Delivery O2 Flow Rate FiO2 03/29/17 13:18 98.4 97 20 141/100 98 03/29/17 08:00 98.8 91 20 125/66 98 03/29/17 06:05 98.9 98 20 134/73 94 03/29/17 06:00 90 03/29/17 02:54 80 03/29/17 01:04 98.5 91 20 163/99 100 03/28/17 21:10 98.7 103 20 150/81 100 03/28/17 16:34 99.2 105 20 169/96 99 03/28/17 03/28/17 03/29/17 15:00 23:00 07:00 # Voids 6 2 # Bowel Movements 0 1 . Laboratory Tests Test 03/28/17 08:00 White Blood Count 15.3 TH/MM3 Red Blood Count 4.89 MIL/MM3 Hemoglobin 14.3 GM/DL Hematocrit 41.8 % Mean Corpuscular Volume 85.4 FL Mean Corpuscular Hemoglobin 29.1 PG Mean Corpuscular Hemoglobin 34.1 % Concent Red Cell Distribution Width 13.9 % Platelet Count 193 TH/MM3 Mean Platelet Volume 9.3 FL Laboratory Tests Test 03/27/17 03/28/17 19:15 08:00 C-Reactive Protein 6.30 MG/DL Sodium Level 141 MEQ/L Potassium Level 4.2 MEQ/L Chloride Level 105 MEQ/L Carbon Dioxide Level 27.9 MEQ/L Anion Gap 8 MEQ/L Blood Urea Nitrogen 8 MG/DL Creatinine 0.98 MG/DL Estimat Glomerular Filtration 89 ML/MIN Rate Random Glucose 83 MG/DL Calcium Level 8.5 MG/DL Microbiology Date/Time Procedure Status Source Growth 03/27/17 02:00 Aerobic Blood Culture - Preliminary Resulted Blood Peripheral NO GROWTH IN 2 DAYS 03/27/17 02:00 Anaerobic Blood Culture - Preliminary Resulted Blood Peripheral NO GROWTH IN 2 DAYS 03/27/17 02:00 Group A Streptococcus Screen (YENI) - Final Complete Throat 03/27/17 02:00 Group A Streptococcus Screen - Final Complete Throat NO GP A BETA STREP ISOLATED. 03/27/17 02:05 Aerobic Blood Culture - Preliminary Resulted Blood Peripheral NO GROWTH IN 2 DAYS 03/27/17 02:05 Anaerobic Blood Culture - Preliminary Resulted Blood Peripheral NO GROWTH IN 2 DAYS 03/27/17 02:35 Influenza Types A,B Antigen (YENI) - Final Complete Nasal Washing NEGATIVE FOR FLU A AND B ANTIGEN.... 03/27/17 02:35 Urine Culture - Final Complete Urine Catheterized Urine 10-50,000 CFU/ML MIXED GRAM POSITIVE ... 03/27/17 03:45 Gram Stain - Final Resulted Cerebral Spinal Fluid Lumbar Puncture 03/27/17 03:45 CSF Culture - Preliminary Resulted Cerebral Spinal Fluid Lumbar Puncture NO GROWTH IN 48 HOURS. 03/27/17 17:15 Neisseria gonorrhoeae Culture - Preliminary Resulted Throat RESULTS PENDING Imaging Last Impressions Brain MRI 03/28/17 0000 Signed Impressions: Service Date/Time: Tuesday, March 28, 2017 11:34 - CONCLUSION: Negative MRI of the brain performed without and with contrast. Ismael Lopez MD FACR Chest X-Ray 03/27/17 0205 Signed Impressions: Service Date/Time: Monday, March 27, 2017 02:23 - CONCLUSION: Normal examination. Dedrick Harley Jr., MD Neck CT 03/27/17 0000 Signed Impressions: Service Date/Time: Monday, March 27, 2017 18:12 - CONCLUSION: No evidence of abscess Chuy Ruelas MD Maxillofacial CT 03/27/17 0000 Signed Impressions: Service Date/Time: Monday, March 27, 2017 18:03 - CONCLUSION: Normal examination. Chuy Ruelas MD Head CT 03/27/17 0000 Signed Impressions: Service Date/Time: Monday, March 27, 2017 02:47 - CONCLUSION: Normal examination. Dedrick Harley Jr., MD Physical Exam GENERAL: This is a well-nourished, well-developed patient, in no apparent distress. SKIN: No rashes, ecchymoses or lesions. Cool and dry. HEAD: Atraumatic. Normocephalic. No temporal or scalp tenderness. EYES: Pupils equal round and reactive. Extraocular motions intact. No scleral icterus. No injection or drainage. ENT: Nose without bleeding, purulent drainage or septal hematoma. Throat without erythema, tonsillar hypertrophy or exudate. Uvula midline. Airway patent. NECK: Trachea midline. Right neck with significant swelling, erythema, warmth, tenderness. Bimanual exam of oral cavity performed with no ballotment noted. Left submandibular tenderness and swelling noted significantly improved. CARDIOVASCULAR: Regular rate and rhythm without murmurs, gallops, or rubs. RESPIRATORY: Clear to auscultation. Breath sounds equal bilaterally. No wheezes , rales, or rhonchi. GASTROINTESTINAL: Abdomen soft, non-tender, nondistended. MUSCULOSKELETAL: Extremities without clubbing, cyanosis, or edema. No joint tenderness, effusion, or edema noted. No calf tenderness. Negative Homans sign bilaterally. NEUROLOGICAL: Awake and alert. Grossly non focal Psych: cooperative IV line sites with no e/o infection Assessment & Plan Remarks Possible meningoencephalitis vs parameningeal focus of infection related to neck swelling. Right side neck swelling ? cellulitis of Skin soft tissue. Syncope prior to admission Abnormal LP Leucocytosis Elevated CRP. Recs: DC ceftriaxone IV Continue Oral Doxy (pts Mom reports he traveled to [place] recently and they have dogs with ticks) Discharge home Follow with Dr.Reba Pretty in clinic to follow up on labs and clearance. 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 office notified. Will sign off please call back if any change in clinical condition or questions. d/w . Catherine Garcia MD March 29, 2017 15:17
[2017-03-29] MEDS ORDERED: DOXYCYCLINE HYCLATE 100 MG CAP PO SCH (21:00)
[2017-03-30 03:51] LABS: CD 19 PERCENT 23 % (6-29); CD3 ABSOLUTE 1318 (840-3060); CD4/CD8 RATIO 2.3 (0.86-5.00); CD8 ABSOLUTE 403 (180-1170); LYMPHOCYTES, ABSOLUTE 2315 (850-3900)
[2017-03-30 19:19] LABS: LYME IGG IMMUNOBLOT CSF None Detected bands (None Detected); LYME IGM IMMUNOBLOT CSF None Detected bands (None Detected)
[2017-03-31 17:52] LABS: LYME DISEASE PCR NOT DETECTED (())
[2017-03-31 17:52] LABS: LYME DISEASE 18KD IGG BAND NON-REACTIVE (()); LYME DISEASE 23 IGG BAND NON-REACTIVE (()); LYME DISEASE 23KD IGM BAND NON-REACTIVE (()); LYME DISEASE 28KD IGG BAND NON-REACTIVE (()); LYME DISEASE 30KD IGG BAND NON-REACTIVE (()); LYME DISEASE 39 KD IGG BAND NON-REACTIVE (()); LYME DISEASE 39KD IGM BAND NON-REACTIVE (()); LYME DISEASE 41KD IGG BAND REACTIVE (()); LYME DISEASE 41KD IGM BAND NON-REACTIVE (()); LYME DISEASE 45KD IGG BAND NON-REACTIVE (()); LYME DISEASE 58KD IGG BAND NON-REACTIVE (()); LYME DISEASE 66KD IGG BAND REACTIVE (()); LYME DISEASE 93KD IGG BAND NON-REACTIVE (()); LYME DISEASE IGM WB NEGATIVE (())
[2017-03-31 23:54] LABS: B. BURGDORFERI DNA PCR CSF NOT DETECTED (())
[2017-04-01 17:53] LABS: HIV 1 PROVIRAL DNA Not Detected (Not Detected)
== END 2017-03-29 18:22 | disposition home or self-care (01) | DRG 76 ==
LOC: NEPE 01:53 → NEDA 05:17 → N05B 08:48
PROVIDERS: ADMIT Internal Medicine; ATTEND Internal Medicine
PROC: 009U3ZX Drainage of Spinal Canal, Percutaneous Approach, Diagnostic (ICD-10-PCS; principal; 2017-03-27)
DX: A87.9 Viral meningitis, unspecified (principal); R55 Syncope and collapse; R59.0 Localized enlarged lymph nodes
CPT/HCPCS: 62270; 70450; 70487; 70491; 70553; 71010; 76937; 80048; 80053; 80074; 81001; 82945; 83605; 83690; 83735; 84157; 84484; 85025; 85027; 86140; 86308; 86355; 86357; 86359; 86360; 86592; 86611; 86617; 86618; 86664; 86665; 86703; 87040; 87070; 87081; 87086; 87205; 87491; 87529; 87535; 87591; 87801; 87804; 87880; 89051; 93005; 93306; 95819; A9579; J0133; J0696; J3370; J7050; Q9967